=== PATIENT | female | born 1985 | race African-American/Black ===

== ENCOUNTER 2016-03-22 14:58 | Inpatient (IN) | payer OTHER ==
--- NOTE | 2016-03-22 15:52 | PDOC ---
History of Present Illness - General Chief Complaint: Sickle Cell Crisis Stated Complaint: WEAKNESS, JOINT PAIN Time Seen by Provider: 03/22/16 15:47 History Source: Patient - History of Present Illness Timing/Duration: other Associated Symptoms: reports: chest pain. denies: cough, fever/chills, headaches, nausea/vomiting, shortness of breath, weakness Past History - Past Medical History Allergies/Adverse Reactions: Allergies Allergy/AdvReac Type Severity Reaction Status Date / Time No Known Allergies Allergy Verified 03/22/16 15:14 Home Medications: Ambulatory Orders Folic Acid - 1 mg PO DAILY #30 tablet 08/26/13 Anemia: Yes (SICKLE CELL) - Surgical History Cholecystectomy: Yes (JUNE 2013) Orthopedic Surgery: Yes (left knee surgery 11yrears ago) - Immunization History Immunization Up to Date: Yes - Psycho/Social/Smoking Cessation Hx Anxiety: No Suicidal Ideation: No Smoking History: Never smoked Have you smoked in the past 12 months: No Number of Cigarettes Smoked Daily: 0 Information on smoking cessation initiated: No Hx Alcohol Use: No Drug/Substance Use Hx: No Substance Use Type: None Hx Substance Use Treatment: No Review of Systems - Review of Systems Constitutional: No: Chills, Fever Respiratory: No: Cough, Shortness of Breath Cardiac (ROS): Yes: Chest Pain ABD/GI: No: Constipated, Diarrhea, Nausea, Vomiting, Abdominal cramping : No: Dysuria Musculoskeletal: Yes: Joint Pain. No: Back Pain, Joint Swelling, Neck Pain Neurological: No: Headache, Dizziness *Physical Exam - Vital Signs Last Vital Signs Temp Pulse Resp BP Pulse Ox 99.0 F 108 H 20 123/72 95 03/22/16 15:14 03/22/16 15:14 03/22/16 15:14 03/22/16 15:14 03/22/16 15:14 - Physical Exam General Appearance: Yes: Appropriately Dressed. No: Apparent Distress HEENT: positive: Normal Voice, Scleral Icterus (R), Scleral Icterus (L) Neck: positive: Supple Respiratory/Chest: positive: Lungs Clear, Normal Breath Sounds. negative: Respiratory Distress Cardiovascular: positive: S1, S2, Tachycardia Gastrointestinal/Abdominal: positive: Soft. negative: Tender Extremity: positive: Normal Inspection Integumentary: positive: Dry, Warm Neurologic: positive: Fully Oriented, Alert, Normal Mood/Affect ED Treatment Course - LABORATORY CBC & Chemistry Diagram: 03/22/16 16:09 03/22/16 16:09 - RADIOLOGY Radiology Studies Ordered: Category Date Time Status CHEST X-RAY PORTABLE* [RAD] Stat Radiology 03/22/16 15:48 Ordered Medical Decision Making - Medical Decision Making 03/22/16 16:16 30-year-old female, history of sickle cell anemia, status post multiple transfusions, possible acute chest per pt, "enlarged liver", chronic scleral icterus, currently on folic acid and motrin, presenting with usual pain crisis. Patient states 3 days ago developed bilateral lower extremity pain that resolved at some point and reoccurred today with radiation to hips now. Also complaining of bilateral shoulder pain and chest pain. No sob, palpitations, cough, fever, chills, abdominal pain, change in bowel movements or dysuria. States Motrin not relieving pain. See exam Sicle cell crises -pain control -labs/ekg/cxr -dispo pending 03/22/16 16:25 03/22/16 17:43 Hgb 5.1, will transfuse and admit 03/22/16 17:49 03/22/16 18:04 Case d/w hospitalist and pt admitted 03/22/16 18:08 03/22/16 18:34 WBC elevated. Appears to have been elevated in the past. Will r/o infxn. UA neg for infection. CXR pending *DC/Admit/Observation/Transfer Diagnosis at time of Disposition: Sickle cell anemia Qualifiers: Sickle-cell associated disorders: with unspecified crisis Qualified Code(s): D57.00 - Hb-SS disease with crisis, unspecified - Discharge Dispostion Condition at time of disposition: Fair Admit: Yes
[2016-03-22] MEDS ORDERED: DEXTROSE 5%-0.45% SALINE 1,000 ML IV SCH (16:00)
[2016-03-22] MEDS ORDERED: HYDROmorphone HCL CARPU-JECT 2 MG/1 ML DISP.SYRIN IVPB ONE (16:14)
[2016-03-22] MEDS ORDERED: HYDROmorphone HCL CARPU-JECT 2 MG/1 ML DISP.SYRIN ONE (16:14)
[2016-03-22 16:37] LABS: URINE APPEARANCE CLEAR; URINE BILIRUBIN NEGATIVE (NEGATIVE); URINE COLOR DKYELLOW; URINE GLUCOSE (UA) NEGATIVE (NEGATIVE); URINE KETONE NEGATIVE (NEGATIVE); URINE LEUK ESTERASE NEGATIVE (NEGATIVE); URINE NITRITE NEGATIVE (NEGATIVE); URINE UROBILINOGEN 2.0 E.U/dl E.U./dl (0.2-1.0)
[2016-03-22 16:52] LABS: URINE BLOOD 2+ (NEGATIVE); URINE PROTEIN 2+ (NEGATIVE)
[2016-03-22 16:55] LABS: MCHC 32.6 g/dl (32.0-36.0); MEAN CELL VOLUME 104.2 fl (80-96); MEAN PLT VOLUME 10.6 fl (7.5-11.1); PLATELET COUNT 289 K/MM3 (134-434); RDW 27.3 % (11.6-15.6)
[2016-03-22 17:02] LABS: URINE MUCUS RARE; URINE RBC 15 /hpf (0-3); URINE WBC 2 /hpf (3-5)
[2016-03-22 17:15] LABS: ALBUMIN 3.6 g/dl (3.4-5.0); ALK PHOS 188 U/L (45-117); ANION GAP 9 (8-16); BILIRUBIN,TOTAL 5.2 mg/dL (0.2-1.0); CALCIUM 8.1 mg/dL (8.5-10.1); CO2 22 mmol/L (21-32); CREATININE 0.7 mg/dL (0.55-1.02); GLUCOSE,RANDOM 82 mg/dL (74-106); SGPT/ALT 74 U/L (12-78); TOT PROT 7.7 g/dl (6.4-8.2)
[2016-03-22 17:18] LABS: TROPONIN I < 0.02 ng/ml (0.00-0.05)
[2016-03-22 17:28] LABS: SGOT/AST 143 U/L (15-37)
[2016-03-22 18:11] LABS: PLATELET ESTIMATE ADEQUATE (NORMAL); POIKILOCYTOSIS 2+; POLYCHROMASIA 2+
[2016-03-22 18:12] LABS: ANISOCYTOSIS 3+; TARGET CELLS 1+
[2016-03-22 18:15] LABS: HOWELL-JOLLY BODIES SEEN
--- NOTE | 2016-03-22 18:18 | HP ---
CHIEF COMPLAINT: Patient states that apx 3 days ago, she developed bilateral lower ext pain that radiates to the hips. She is also complaining of bilateral shoulder pain and chest pain. She denies fever/chills/recent sick contacts. PCP: HISTORY OF PRESENT ILLNESS: Patient is a 30 year old female with a past medical history of sickle cell crisis, anemia. She is s/p multiple blood transfusions, chronic scleral icterus. She presents to the ED today with generalized pain and weakness. Patient states that apx 3 days ago, she developed bilateral lower ext pain that radiates to the hips. She is also complaining of bilateral shoulder pain and chest tightness which she believes is secondary to sickle cell crisis, last one 12/2015. She describes the chest pain as intermittent, sharp when she takes in a deep breath but does not radiate. Her menstrual cycle started on Friday and she reports it as being a normal period. Denies any clots or heavy bleeding. She denies shortness of breath, palpitations, cough, fever, chills, abdominal pain or dysuria. She states Motrin is not managing her pain. ER course was notable for: (1) hmg/hct 5.7/17.6 (2) Retic count 23.45 (3) Chest pain (4) WBC 41 PAST MEDICAL HISTORY: sickle cell crisis, anemia, multiple blood transfusions PAST SURGICAL HISTORY: Social History: Smoking: denies Alcohol: denies Drugs: denies Family History: Recent travel: Denies Family History: Mother has sickle cell trait, Sister has diabetes mellitus Social History: Has one child Allergies No Known Allergies Allergy (Verified 03/22/16 15:14) HOME MEDICATIONS: Medication Instructions Recorded Folic Acid - 1 mg PO DAILY #30 tablet 08/26/13 REVIEW OF SYSTEMS CONSTITUTIONAL: Absent: fever, chills, diaphoresis, generalized weakness, malaise, loss of appetite, weight change HEENT: Absent: rhinorrhea, nasal congestion, throat pain, throat swelling, difficulty swallowing, mouth swelling, ear pain, eye pain, visual changes CARDIOVASCULAR: chest pain Absent: syncope, palpitations, irregular heart rate, lightheadedness, peripheral edema RESPIRATORY: Absent: cough, shortness of breath, dyspnea with exertion, orthopnea, wheezing, stridor, hemoptysis GASTROINTESTINAL: denies abdominal pain, abdominal distension + bowel sounds Absent: nausea, vomiting, diarrhea, constipation, melena, hematochezia GENITOURINARY: Absent: dysuria, frequency, urgency, hesitancy, hematuria, flank pain, genital pain MUSCULOSKELETAL: back pain, leg pain Absent: myalgia, arthralgia, joint swelling, neck pain SKIN: Absent: rash, itching, pallor HEMATOLOGIC/IMMUNOLOGIC: Absent: easy bleeding, easy bruising, lymphadenopathy, frequent infections ENDOCRINE: Absent: unexplained weight gain, unexplained weight loss, heat intolerance, cold intolerance NEUROLOGIC: Absent: headache, focal weakness or paresthesias, dizziness, unsteady gait, seizure, mental status changes, bladder or bowel incontinence PSYCHIATRIC: Absent: anxiety, depression, suicidal or homicidal ideation, hallucinations. PHYSICAL EXAMINATION Vital Signs - 24 hr 03/22/16 15:14 Temperature 99.0 F Pulse Rate 108 H Respiratory 20 Rate Blood Pressure 123/72 O2 Sat by Pulse 95 Oximetry (%) GENERAL: Awake, alert, and fully oriented, in no acute distress. HEAD: Normal with no signs of trauma. EYES: Pupils equal, round and reactive to light, extraocular movements intact EARS, NOSE, THROAT: Ears normal, nares patent, oropharynx clear without exudates. Moist mucous membranes. NECK: Normal range of motion, supple without lymphadenopathy, JVD, or masses. LUNGS: Breath sounds equal, clear to auscultation bilaterally. No wheezes, and no crackles. No accessory muscle use. HEART: Regular rate and rhythm, normal S1 and S2 without murmur, rub or gallop. ABDOMEN: Soft, nontender, not distended, normoactive bowel sounds, no guarding, no rebound, no masses. MUSCULOSKELETAL: Normal range of motion at all joints. No bony deformities or tenderness. No CVA tenderness. UPPER EXTREMITIES: 2+ pulses, warm, well-perfused. No cyanosis. No clubbing. Cap refill <2 seconds. No peripheral edema. LOWER EXTREMITIES: 2+ pulses, warm, well-perfused. No calf tenderness. No peripheral edema. NEUROLOGICAL: Normal speech. Normal gait. PSYCHIATRIC: Cooperative. Good eye contact. Appropriate mood and affect. SKIN: Warm, dry, normal turgor, no rashes or lesions noted. Laboratory Results - last 24 hr 03/22/16 03/22/16 03/22/16 15:48 16:09 16:09 RBC 1.69 L D Hgb 5.7 L* D Hct 17.6 L D MCV 104.2 H MCHC 32.6 RDW 27.3 H Plt Count 289 D MPV 10.6 Neutrophils % Y Lymphocytes % Y Retic Count 23.45 H* D Sodium 139 Potassium 5.0 Chloride 108 H Carbon Dioxide 22 Anion Gap 9 BUN 10 D Creatinine 0.7 D Creat Clearance w eGFR > 60 Random Glucose 82 Calcium 8.1 L Total Bilirubin 5.2 H AST 143 H ALT 74 Alkaline Phosphatase 188 H D Creatine Kinase Troponin I Total Protein 7.7 Albumin 3.6 Serum , Qual Urine Color Urine Appearance Urine pH Ur Specific [place] Urine Protein Urine Glucose (UA) Urine Ketones Urine Blood Urine Nitrite Urine Bilirubin Urine Urobilinogen Ur Leukocyte Esterase Urine RBC Urine WBC Ur Epithelial Cells Urine Mucus Blood Type Antibody Screen Crossmatch 03/22/16 03/22/16 03/22/16 16:09 16:09 16:18 RBC Hgb Hct MCV MCHC RDW Plt Count MPV Neutrophils % Lymphocytes % Retic Count Sodium Potassium Chloride Carbon Dioxide Anion Gap BUN Creatinine Creat Clearance w eGFR Random Glucose Calcium Total Bilirubin AST ALT Alkaline Phosphatase Creatine Kinase 159 D Troponin I < 0.02 Total Protein Albumin Serum , Qual Negative Urine Color Dkyellow Urine Appearance Clear Urine pH 5.0 Ur Specific [place] 1.011 Urine Protein 2+ H Urine Glucose (UA) Negative Urine Ketones Negative Urine Blood 2+ H Urine Nitrite Negative Urine Bilirubin Negative Urine Urobilinogen 2.0 e.u/dl H Ur Leukocyte Esterase Negative Urine RBC 15 Urine WBC 2 Ur Epithelial Cells Rare Urine Mucus Rare Blood Type O POSITIVE Antibody Screen Negative Crossmatch See Detail ASSESSMENT/PLAN: Patient is a 30 year old female with a past medical history of sickle cell crisis, anemia. She is s/p multiple blood transfusions, chronic scleral icterus. She presents to the ED today with generalized pain and weakness. Patient states that apx 3 days ago, she developed bilateral lower ext pain that radiates to the hips. She is also complaining of bilateral shoulder pain and chest tightness which she believes is secondary to sickle cell crisis, last sickle cell crisis on 12/2015. She describes the chest pain as intermittent, sharp when she takes in a deep breath but does not radiate. She denies shortness of breath, palpitations, cough, fever, chills, abdominal pain or dysuria. She states Motrin is not managing her pain. Her menstrual cycle started on Friday and she reports it as being a normal period. Denies any clots or heavy vaginal bleeding. She states she has been non compliant with the Hydroxurea secondary to insurance issues. Hematology/Oncology: Acute sickle cell crisis - Hmg/Hct 5.7/17.6 - getting 2 units of prbc, Chest Xray: pending Pain Control with Morphine 2mg iv push q4, Benadryl prn NS at 125cc/hr, Hydroxyurea BID and folic acid Supplemental oxygen prn Re-check CBC, Retic, LDH Transfuse as needed VQ scan ordered to rule out PE Cardiology: Chest Pain - acute Troponins x 1 negative, trend troponins ID: Leukocytosis likely reactive to crisis WBC 41, patient is afebrile, vitals stable, Blood cultures ordered, urine cultures ordered Non toxic appearing, denies recent sick contacts or travel WBC appears to have been chronically elevated in the past. ID consulted, Trend CBC, Monitor off antibiotics, monitor vitals GI: Transaminitis Trend LFTs F.E.N. NS at 125cc/hr Regular diet BMP in a.m. Prophylaxis: Moderate risk: SCDs for DVT, ambulation Disposition: Requires inpatient hospitalization, patient receiving 2 units of prbc, heme/onc consulted. Visit type - Emergency Visit Emergency Visit: Yes ED Registration Date: 03/22/16 Care time: The patient presented to the Emergency Department on the above date and was hospitalized for further evaluation of their emergent condition. - New Patient This patient is new to me today: Yes Date on this admission: 04/02/16 - Critical Care Critical Care patient: No
[2016-03-22] MEDS ORDERED: HYDROmorphone HCL CARPU-JECT 1 MG/1 ML DISP.SYRIN IVPUSH PRN (18:20)
[2016-03-22] MEDS ORDERED: ONDANSETRON 4 MG/2 ML VIAL IVPUSH PRN (18:45)
[2016-03-22] MEDS ORDERED: morphine CARPU-JECT 2 MG/1 ML DISP.SYRIN IVPUSH PRN (18:45)
[2016-03-22] MEDS: SODIUM CHLORIDE 1,000 ML IV SCH (20:44)
--- NOTE | 2016-03-22 21:59 | CONSULT ---
Consult Consult Specialty:: Hematology Referred by:: Naye Castillo Reason for Consultation:: Sickle crisis - History of Present Illness Chief Complaint: pain X3 days History of Present Illness: 30 y/o F w Sickle Cell Anemia , stopped hydrea 1 year ago , suboptimal hematological f/u over past year, now w 3 day hx of progressive bone pain , knees up to hips , shoulders/chest ; had chills ,low grade fever but no dysuria , cough,or phlegm .The H/H was 5.7 /17.6 MCV 104 [id number] plates 289K + sickle cells Retic 23.Pt started on hydration and morphine ; CXR neg ; UA neg ; LFT's sl elevated .Pt feeling slightly better , O2 sat 95% - History Source History Provided By: Patient Limitations to Obtaining History: No Limitations - 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: Alzheimer's, CVA, Dementia, Migraine, Multiple Sclerosis, Peripheral Neuropathy, Parkinson's, Seizure, Syncope, TIA, Vertigo, Other Cardio/Vascular: No: AFIB, Aneurysm, Aortic Insufficiency, Aortic Stenosis, CAD , CHF, Deep Vein Thrombosis, HTN, Hyperlipdemia, MA, Mitral Insufficiency, Mitral Stenosis, Murmur, Pulmonary Hypertension, Other Pulmonary: No: Asthma, Bronchitis, Cancer, COPD, O2 Dependent, Pneumonia, Previously Intubated, Pulmonary Embolus, Pulmonary Fibrosis, Sleep Apnea, Other Gastrointestinal: No: Ascites, Cancer, Constipation, Crohn's Disease, Diverticulitis, Diverticulosis, Esophageal Varices, Gastritis, GERD, GI Bleed, Hemorrhoids, Hiatal Hernia, Inflamatory Bowel Disease, Irritable Bowel Disease, Pancreatitis, Peptic Ulcer Disease, Ulcerative Colitis, Other Hepatobiliary: Yes: Cirrhosis. No: Cholecystitis, Choledocholithiasis, Hepatitis A, Hepatitis B, Hepatitis C, Other ...LMP: 12/21/15 Heme/Onc: Yes: Anemia, Sickle Cell Disease Musculoskeletal: Yes: Other ( knee infection) Rheumatology: No: Fibromyalgia, Gout, Lupus, Rheumatoid Arthritis, Sarcoidosis, Vasculitis, Other ENT: No: Allergic Rhinitis, Sinusitis, Other Endocrine: No: Mono's Disease, [place]'s Disease, Diabetes Insipidus, Diabetes Mellitus, Hyperparathyroidism, Hyperthyroidism, Hypothyroidism, Osteopenia, SIADH, Other Dermatology: No: Basal Cell, Cellulitis, Eczema, Melanoma, Psoriasis, Squamous Cell, Other Additional Medical History: history of multiple gallstones - Past Surgical History Past Surgical History: Yes: Cholecystectomy, - Alcohol/Substance Use Hx Alcohol Use: No - Smoking History Smoking history: Never smoked Have you smoked in the past 12 months: No Aproximately how many cigarettes per day: 0 - Social History History of Recent Travel: No Home Medications - Allergies Allergies/Adverse Reactions: Allergies Allergy/AdvReac Type Severity Reaction Status Date / Time No Known Allergies Allergy Verified 03/22/16 15:14 - Home Medications Home Medications: Ambulatory Orders Folic Acid - 1 mg PO DAILY #30 tablet 08/26/13 Family Disease History - Family Disease History Family Disease History: Diabetes: Sister, Other: Mother (scc trait) Review of Systems - Review of Systems Constitutional: reports: Chills, Fever, Weakness Eyes: reports: No Symptoms HENT: reports: No Symptoms Neck: reports: No Symptoms Cardiovascular: reports: No Symptoms Respiratory: reports: No Symptoms Gastrointestinal: reports: No Symptoms Genitourinary: reports: No Symptoms Breasts: reports: No Symptoms Reported Musculoskeletal: reports: Extremity Pain, Other (chest wall pain) Integumentary: reports: No Symptoms Neurological: reports: No Symptoms Endocrine: reports: No Symptoms Hematology/Lymphatic: reports: No Symptoms Psychiatric: reports: No Symptoms Physical Exam Vital Signs: Vital Signs Temperature 97.5 F L 03/22/16 18:40 Pulse Rate 18 L 03/22/16 19:25 Respiratory Rate 18 03/22/16 19:25 Blood Pressure 121/84 03/22/16 19:25 O2 Sat by Pulse Oximetry (%) 100 03/22/16 19:25 Constitutional: Yes: Well Nourished, No Distress, Calm Eyes: Yes: WNL, EOM Intact, Sclera Icterus HENT: Yes: WNL, Atraumatic, Normocephalic Neck: Yes: WNL, Supple, Trachea Midline Cardiovascular: Yes: WNL, Regular Rate and Rhythm, Murmur Respiratory: Yes: WNL, Regular Gastrointestinal: Yes: WNL, Normal Bowel Sounds, Soft. No: Abdomen, Obese, Ascites, Distention, Hematemesis, Hemorrhoids, Hepatomegaly, Hernia, Hyperactive Bowel Sounds, Hypoactive Bowel Sounds, Melena, Palpable Mass, Pulsatile Mass, Rectal Bleeding, Splenomegaly, Tenderness, Tenderness, Epigastrium, Tenderness, Rebound, Vomiting, Other Musculoskeletal: Yes: Joint Stiffness Extremities: Yes: WNL Edema: No Problem List - Problems (1) Sickle cell anemia Code(s): D57.1 - SICKLE-CELL DISEASE WITHOUT CRISIS Qualifiers: Sickle-cell associated disorders: with unspecified crisis Qualified Code(s): D57.00 - Hb-SS disease with crisis, unspecified; D57.0 - Hb-SS disease with crisis Assessment/Plan Sickle crisis ; requires Tx PC's , aim for Hgb 8 ; pain control and hydration . Would hold hydrea for now and advise pt to go back to [facility] upon D/ C ; no exchange Tx indicated yet unless crisis becomes prolonged or SOB/ chest syndrome develops
[2016-03-22] MEDS ORDERED: HYDROXYUREA 500 MG CAPSULE PO SCH (22:00)
[2016-03-23] MEDS: SODIUM CHLORIDE 1,000 ML IV SCH ×3 (02:55→18:46)
[2016-03-23 04:07] VITALS: BMI 22.4
[2016-03-23 10:12] LABS: MCH 32.6 pg (25.7-33.7); MCHC 34.3 g/dl (32.0-36.0); MEAN CELL VOLUME 95.1 fl (80-96); MEAN PLT VOLUME 9.8 fl (7.5-11.1); PLATELET COUNT 279 K/MM3 (134-434); RDW 23.6 % (11.6-15.6)
[2016-03-23 10:25] LABS: INR 1.51 (0.82-1.09); PROTHROMBIN TIME (PATIENT) 16.8 SEC (9.98-11.88)
[2016-03-23 10:27] LABS: ACTIVATED PTT 36.4 SECONDS (26.9-34.4)
[2016-03-23] MEDS: FOLIC ACID 1 MG TABLET (FP) PO SCH (10:29)
[2016-03-23] MEDS: PANTOPRAZOLE SODIUM 100 ML IVPB SCH (10:29)
[2016-03-23 11:15] LABS: ALBUMIN 3.3 g/dl (3.4-5.0); ALK PHOS 174 U/L (45-117); ANION GAP 9 (8-16); BILIRUBIN,TOTAL 3.8 mg/dL (0.2-1.0); CALCIUM 7.8 mg/dL (8.5-10.1); CO2 21 mmol/L (21-32); CREATININE 0.5 mg/dL (0.55-1.02); GLUCOSE,RANDOM 127 mg/dL (74-106); MAGNESIUM 1.9 mg/dL (1.8-2.4); PHOSPHOROUS 3.5 mg/dL (2.5-4.9); SGOT/AST 114 U/L (15-37); SGPT/ALT 64 U/L (12-78); TOT PROT 6.9 g/dl (6.4-8.2); TROPONIN I < 0.02 ng/ml (0.00-0.05)
[2016-03-23 11:39] LABS: PLATELET COMMENT2 NO CLOTTING DETECTED; PLATELET ESTIMATE ADEQUATE (NORMAL); SMUDGE CELLS FEW
[2016-03-23 11:40] LABS: ANISOCYTOSIS 3+; HYPOCHROMIA 2+; MICROCYTOSIS 1+; PLATELET COMMENT3 FEW GIANT PLTS; POIKILOCYTOSIS 3+; POLYCHROMASIA 3+; TARGET CELLS 1+
--- NOTE | 2016-03-23 13:57 | EKG ---
Test Reason : Blood Pressure : / mmHG Vent. Rate : 087 BPM Atrial Rate : 087 BPM P-R Int : 134 ms QRS Dur : 086 ms QT Int : 364 ms P-R-T Axes : 054 042 044 degrees QTc Int : 438 ms NORMAL SINUS RHYTHM NONSPECIFIC T WAVE ABNORMALITY ABNORMAL ECG WHEN COMPARED WITH ECG OF 29-SEP-2015 19:58, NO SIGNIFICANT CHANGE WAS FOUND Confirmed by MD JACK, ELADIO ([id number]) on 03/23/2016 1:57:01 PM Referred By: BRITT ARIASILTON Overread By: ELADIO SANTIAGO MD
--- NOTE | 2016-03-23 15:21 | CONSULT ---
Consult Consult Specialty:: infectious diseases Reason for Consultation:: sickle cell,increased wbc - History of Present Illness Chief Complaint: sickle cell History of Present Illness: 10 year old female with a past medical history of sickle cell crisis, anemia. She is s/p multiple blood transfusions, chronic scleral icterus. to the ED Patient states that apx 3 days ago, she developed bilateral lower ext pain that radiates to the hips. She is also complaining of bilateral shoulder pain and chest tightness which she believes is secondary to sickle cell crisis, last one 12/2015. She describes the chest pain as intermittent, sharp when she takes in a deep breath but does not radiate. 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, CVA, Dementia, Migraine, Multiple Sclerosis, Peripheral Neuropathy, Parkinson's, Seizure, Syncope, TIA, Vertigo, Other Cardio/Vascular: No: AFIB, Aneurysm, Aortic Insufficiency, Aortic Stenosis, CAD , CHF, Deep Vein Thrombosis, HTN, Hyperlipdemia, MS, Mitral Insufficiency, Mitral Stenosis, Murmur, Pulmonary Hypertension, Other Pulmonary: No: Asthma, Bronchitis, Cancer, COPD, O2 Dependent, Pneumonia, Previously Intubated, Pulmonary Embolus, Pulmonary Fibrosis, Sleep Apnea, Other Gastrointestinal: No: Ascites, Cancer, Constipation, Crohn's Disease, Diverticulitis, Diverticulosis, Esophageal Varices, Gastritis, GERD, GI Bleed, Hemorrhoids, Hiatal Hernia, Inflamatory Bowel Disease, Irritable Bowel Disease, Pancreatitis, Peptic Ulcer Disease, Ulcerative Colitis, Other Hepatobiliary: Yes: Cirrhosis. No: Cholecystitis, Choledocholithiasis, Hepatitis A, Hepatitis B, Hepatitis C, Other ...LMP: 12/21/15 ...: No Musculoskeletal: Yes: Other ( knee infection) Rheumatology: No: Fibromyalgia, Gout, Lupus, Rheumatoid Arthritis, Sarcoidosis, Vasculitis, Other ENT: No: Allergic Rhinitis, Sinusitis, Other Endocrine: No: [place]'s Disease, [place]'s Disease, Diabetes Insipidus, Diabetes Mellitus, Hyperparathyroidism, Hyperthyroidism, Hypothyroidism, Osteopenia, SIADH, Other Dermatology: No: Basal Cell, Cellulitis, Eczema, Melanoma, Psoriasis, Squamous Cell, Other Additional Medical History: history of multiple gallstones - Past Surgical History Past Surgical History: Yes: Cholecystectomy, - Alcohol/Substance Use Hx Alcohol Use: No - Smoking History Smoking history: Never smoked Have you smoked in the past 12 months: No Aproximately how many cigarettes per day: 0 - Social History History of Recent Travel: No Home Medications - Allergies Allergies/Adverse Reactions: Allergies Allergy/AdvReac Type Severity Reaction Status Date / Time No Known Allergies Allergy Verified 03/22/16 15:14 - Home Medications Home Medications: Ambulatory Orders Folic Acid - 1 mg PO DAILY #30 tablet 08/26/13 Family Disease History - Family Disease History Family Disease History: Diabetes: Sister, Other: Mother (scc trait) Review of Systems - Review of Systems Constitutional: reports: No Symptoms Eyes: reports: No Symptoms HENT: reports: No Symptoms Neck: reports: No Symptoms Cardiovascular: reports: No Symptoms Respiratory: reports: No Symptoms Gastrointestinal: reports: No Symptoms Genitourinary: reports: No Symptoms Breasts: reports: No Symptoms Reported Musculoskeletal: reports: No Symptoms Integumentary: reports: No Symptoms Neurological: reports: No Symptoms Endocrine: reports: No Symptoms Hematology/Lymphatic: reports: No Symptoms Psychiatric: reports: No Symptoms Physical Exam Vital Signs: Vital Signs Temperature 99.6 F 03/23/16 15:07 Pulse Rate 86 03/23/16 15:07 Respiratory Rate 18 03/23/16 15:07 Blood Pressure 118/61 03/23/16 15:07 O2 Sat by Pulse Oximetry (%) 99 03/22/16 22:10 Constitutional: Yes: No Distress, Calm Eyes: Yes: Conjunctiva Clear HENT: Yes: Atraumatic Cardiovascular: Yes: Regular Rate and Rhythm Respiratory: Yes: Regular, CTA Bilaterally Gastrointestinal: Yes: Normal Bowel Sounds, Soft, Abdomen, Obese, Distention Musculoskeletal: Yes: WNL Extremities: Yes: WNL Neurological: Yes: Alert, Oriented Psychiatric: Yes: Alert, Oriented Labs: CBC, BMP 03/23/16 09:50 03/23/16 09:50 Imaging - Results Chest X-ray: Report Reviewed, Image Reviewed Assessment/Plan - Problems (1) Sickle cell anemia Code(s): D57.1 - SICKLE-CELL DISEASE WITHOUT CRISIS Qualifiers: Sickle-cell associated disorders: with unspecified crisis Qualified Code(s): D57.00 - Hb-SS disease with crisis, unspecified; D57.0 leukocytosis plan no abx at this moment close watch on the patient
--- NOTE | 2016-03-23 18:06 | PN ---
Physical Exam: SUBJECTIVE: Patient seen and examined. She reports feeling better. Denies any chest pain or shortness of breath. Pain controlled on morphine. OBJECTIVE: Vital Signs Period Temp Pulse Resp BP Sys/Smith Pulse Ox Last 24 Hr 97.5 F-99.6 F 18-111 16-18 114-136/58-84 95-100 GENERAL: Awake, alert, and fully oriented, in no acute distress. HEAD: Normal with no signs of trauma. EYES: Pupils equal, round and reactive to light, extraocular movements intact EARS, NOSE, THROAT: Ears normal, nares patent, oropharynx clear without exudates. Moist mucous membranes. NECK: Normal range of motion, supple without lymphadenopathy, JVD, or masses. LUNGS: Breath sounds equal, clear to auscultation bilaterally. No wheezes, and no crackles. No accessory muscle use. HEART: Regular rate and rhythm, normal S1 and S2 without murmur, rub or gallop. ABDOMEN: Soft, nontender, distended, normoactive bowel sounds, no guarding, no rebound, no masses. MUSCULOSKELETAL: Normal range of motion at all joints. No bony deformities or tenderness. No CVA tenderness. UPPER EXTREMITIES: 2+ pulses, warm, well-perfused. No cyanosis. No clubbing. Cap refill <2 seconds. No peripheral edema. LOWER EXTREMITIES: 2+ pulses, warm, well-perfused. No calf tenderness. No peripheral edema. NEUROLOGICAL: Normal speech. Normal gait. PSYCHIATRIC: Cooperative. Good eye contact. Appropriate mood and affect. SKIN: Warm, dry, normal turgor, no rashes or lesions noted. Laboratory Results - last 24 hr 03/23/16 03/23/16 03/23/16 00:00 09:50 09:50 WBC 28.0 H D Corrected WBC (auto) 23.53 RBC 2.47 L D Hgb 8.1 L D Hct 23.5 L D MCV 95.1 MCHC 34.3 RDW 23.6 H D Plt Count 279 MPV 9.8 Neutrophils % 47.0 D Lymphocytes % 40.0 D Monocytes % 6.0 Eosinophils % 2.0 D Band Neutrophils 5.0 D Nucleated RBCs 19 H* Smudge Cells Few Platelet Estimate Adequate Platelet Comment No clotting detected Polychromasia 3+ Hypochromic-Microcytic 2+ Poikilocytosis 3+ Basophilic Stippling 1+ Anisocytosis 3+ Microcytosis 1+ Macrocytosis 2+ Sickle Cells 2+ Target Cells 1+ INR 1.51 H PTT (Actin FS) 36.4 H Sodium Potassium Chloride Carbon Dioxide Anion Gap BUN Creatinine Creat Clearance w eGFR Random Glucose Calcium Phosphorus Magnesium Total Bilirubin AST ALT Alkaline Phosphatase Creatine Kinase Troponin I < 0.02 Total Protein Albumin 03/23/16 09:50 WBC Corrected WBC (auto) RBC Hgb Hct MCV MCHC RDW Plt Count MPV Neutrophils % Lymphocytes % Monocytes % Eosinophils % Band Neutrophils Nucleated RBCs Smudge Cells Platelet Estimate Platelet Comment Polychromasia Hypochromic-Microcytic Poikilocytosis Basophilic Stippling Anisocytosis Microcytosis Macrocytosis Sickle Cells Target Cells INR PTT (Actin FS) Sodium 140 Potassium 4.3 Chloride 110 H Carbon Dioxide 21 Anion Gap 9 BUN 7 D Creatinine 0.5 L D Creat Clearance w eGFR > 60 Random Glucose 127 H D Calcium 7.8 L Phosphorus 3.5 Magnesium 1.9 Total Bilirubin 3.8 H D AST 114 H D ALT 64 Alkaline Phosphatase 174 H Creatine Kinase 31 Troponin I < 0.02 Total Protein 6.9 Albumin 3.3 L Active Medications Generic Name Dose Route Start Last Admin Trade Name Freq PRN Reason Stop Dose Admin Diphenhydramine HCl 12.5 mg 03/22/16 18:45 Benadryl Injection - IVPUSH Q4H PRN FOR ITCHING Folic Acid 1 mg 03/23/16 10:00 03/23/16 10:29 Folic Acid - PO 1 mg DAILY ROM Administration Hydroxyurea 500 mg 03/22/16 22:00 03/22/16 22:21 Hydrea - PO 500 mg BID ROM Administration Sodium Chloride 1,000 mls @ 125 mls/hr 03/22/16 18:30 03/23/16 10:28 Normal Saline - IV 125 mls/hr ASDIR ROM Administration Pantoprazole Sodium 100 mls @ 200 mls/hr 03/23/16 10:00 03/23/16 10:29 Protonix 40mg Ivpb (Pre-Docked) IVPB 200 mls/hr DAILY ROM Administration Morphine Sulfate 2 mg 03/22/16 18:45 03/22/16 22:18 Morphine Injection - IVPUSH 2 mg Q4H PRN Administration PAIN Ondansetron HCl 4 mg 03/22/16 18:45 Zofran Injection IVPUSH Q6H PRN NAUSEA AND/OR VOMITING ASSESSMENT/PLAN: Patient is a 30 year old female with a past medical history of sickle cell crisis, anemia. She is s/p multiple blood transfusions, chronic scleral icterus. She presents to the ED today with generalized pain and weakness. Patient states that apx 3 days ago, she developed bilateral lower ext pain that radiates to the hips. She is also complaining of bilateral shoulder pain and chest tightness which she believes is secondary to sickle cell crisis, last sickle cell crisis on 12/2015. She describes the chest pain as intermittent, sharp when she takes in a deep breath but does not radiate. She denies shortness of breath, palpitations, cough, fever, chills, abdominal pain or dysuria. Her menstrual cycle started on Friday and she reports it as being a normal period, denies clots or heavy vaginal bleeding. She states she has been non compliant with the Hydroxurea secondary to insurance issues. Hematology/Oncology: Acute sickle cell crisis - Hmg/Hct 5.7/17.6 on admission, s/p 2 units of prbc, h/h 8.1/23.5, repeat CBC in a.m. Assessment/Plan: Pain Control with Morphine 2mg iv push q4, Benadryl prn NS at 125cc/hr, Hydroxyurea on hold as per [employer] Supplemental oxygen prn, 2 lites, oxygen in 95% Re-check CBC, Retic, LDH in a.m. Transfuse as needed, VQ scan ordered to rule out PE Cardiology: Chest Pain - acute Troponins x 3 negative ID: Leukocytosis likely reactive to crisis - improving Assessment/Plan: WBC 41 on admission, now 28, patient is afebrile, vitals stable, Blood cultures/urine cultures pending Non toxic appearing, denies recent sick contacts or travel WBC appears to have been chronically elevated in the past. ID consulted, Trend CBC, Monitor off antibiotics, monitor vitals GI: Transaminitis - chronic Assessment/Plan: AST/ALT trending down Monitor labs F.E.N. NS at 125cc/hr Regular diet BMP in a.m. Prophylaxis: Moderate risk: SCDs for DVT, ambulation Disposition: Requires inpatient hospitalization. Full Code. Visit type - Emergency Visit Emergency Visit: Yes ED Registration Date: 03/22/16 Care time: The patient presented to the Emergency Department on the above date and was hospitalized for further evaluation of their emergent condition. - New Patient This patient is new to me today: Yes Date on this admission: 03/24/16 - Critical Care Critical Care patient: No - Discharge Referral Referred to [facility] Med P.C.: No
[2016-03-24 08:09] LABS: MCHC 34.4 g/dl (32.0-36.0); MEAN CELL VOLUME 95.9 fl (80-96); MEAN PLT VOLUME 10.1 fl (7.5-11.1); PLATELET COUNT 229 K/MM3 (134-434); RDW 24.2 % (11.6-15.6)
[2016-03-24 08:33] LABS: ALBUMIN 3.2 g/dl (3.4-5.0); ANION GAP 8 (8-16); CALCIUM 7.8 mg/dL (8.5-10.1); CO2 21 mmol/L (21-32); GLUCOSE,RANDOM 77 mg/dL (74-106)
[2016-03-24 08:37] LABS: ALK PHOS 165 U/L (45-117); BILIRUBIN,TOTAL 4.5 mg/dL (0.2-1.0); CREATININE 0.5 mg/dL (0.55-1.02); SGOT/AST 104 U/L (15-37); SGPT/ALT 59 U/L (12-78); TOT PROT 6.9 g/dl (6.4-8.2)
[2016-03-24] MEDS: SODIUM CHLORIDE 1,000 ML IV SCH (09:03)
[2016-03-24] MEDS: PANTOPRAZOLE SODIUM 100 ML IVPB SCH (09:03)
[2016-03-24] MEDS: FOLIC ACID 1 MG TABLET (FP) PO SCH (09:03)
[2016-03-24 09:13] LABS: WHITE BLOOD COUNT 25.3 K/mm3 (4.0-10.0)
[2016-03-24 09:16] LABS: POLYCHROMASIA 1+
[2016-03-24 09:17] LABS: ANISOCYTOSIS 3+; HYPOCHROMIA 1+; MICROCYTOSIS 1+
[2016-03-24 09:19] LABS: PLATELET ESTIMATE ADEQUATE (NORMAL)
--- NOTE | 2016-03-24 12:18 | DS ---
Physical Exam: SUBJECTIVE: Patient seen and examined. She is eager to go home. States she feels well. OBJECTIVE: GENERAL: Awake, alert, and fully oriented, in no acute distress. HEAD: Normal with no signs of trauma. EYES: Pupils equal, round and reactive to light, extraocular movements intact EARS, NOSE, THROAT: Ears normal, nares patent, oropharynx clear without exudates. Moist mucous membranes. NECK: Normal range of motion, supple without lymphadenopathy, JVD, or masses. LUNGS: Breath sounds equal, clear to auscultation bilaterally. No wheezes, and no crackles. No accessory muscle use. HEART: Regular rate and rhythm, normal S1 and S2 without murmur, rub or gallop. ABDOMEN: Soft, nontender, distended, normoactive bowel sounds, no guarding, no rebound, no masses. MUSCULOSKELETAL: Normal range of motion at all joints. No bony deformities or tenderness. No CVA tenderness. UPPER EXTREMITIES: 2+ pulses, warm, well-perfused. No cyanosis. No clubbing. Cap refill <2 seconds. No peripheral edema. LOWER EXTREMITIES: 2+ pulses, warm, well-perfused. No calf tenderness. No peripheral edema. NEUROLOGICAL: Normal speech. Normal gait. PSYCHIATRIC: Cooperative. Good eye contact. Appropriate mood and affect. SKIN: Warm, dry, normal turgor, no rashes or lesions noted. Vital Signs Period Temp Pulse Resp BP Sys/Smith Pulse Ox Last 24 Hr 98 F-99.8 F 82-95 18-20 114-133/61-78 98 PHYSICAL EXAM LABS Laboratory Results - last 24 hr 03/24/16 03/24/16 07:10 07:10 WBC 25.3 H Corrected WBC (auto) 22.59 RBC 2.38 L Hgb 7.9 L Hct 22.8 L MCV 95.9 MCHC 34.4 RDW 24.2 H Plt Count 229 MPV 10.1 Neutrophils % 62.0 D Lymphocytes % 29.0 D Monocytes % 5.0 Eosinophils % 3.0 Band Neutrophils 1.0 D Nucleated RBCs 12 H* Platelet Estimate Adequate Platelet Comment Few large plts Polychromasia 1+ Hypochromic-Microcytic 1+ Anisocytosis 3+ Microcytosis 1+ Macrocytosis 1+ Sickle Cells 2+ Retic Count 16.32 H* D Sodium 141 Potassium 4.6 Chloride 112 H Carbon Dioxide 21 Anion Gap 8 BUN 8 Creatinine 0.5 L Creat Clearance w eGFR > 60 Random Glucose 77 D Calcium 7.8 L Total Bilirubin 4.5 H AST 104 H ALT 59 Alkaline Phosphatase 165 H Total Protein 6.9 Albumin 3.2 L HOSPITAL COURSE: Date of Admission:03/22/16 Date of Discharge: 03/24/16 Admitting diagnosis: Sickle Cell Anemia Patient is a 30 year old female with a past medical history of sickle cell crisis s/p multiple transfusions who presented to the ED on 03/23/2016 with generalized pain (back pain, chest pain, leg pain) that she believes to be secondary to sickle cell crisis. She was admitted to med surg and started on IVF @ 125cc/hr, s/p 2 units of blood, pain control and nausea control. Hematology consulted. Since hospital course she has clinically improved. Reticulocyte count trending down. Urine culture negative. She has been afebrile. She did not require any further blood transfusions. Pt requesting to be discharged, I would like for her to stay one more day but she states she feels well and will follow up with her PCP in [facility] as well as a family practice physician assistant as she now has insurance. She is aware that it is important to follow up with her PCP, Heme and to continue to hydrate herself. I also advised her to seek a GI consult. She is aware that although her hmg/hct have improved, she is still anemic and needs repeat hmg/hct. She verbalized understanding. Hematology/Oncology: Acute sickle cell crisis - Hmg/Hct 5.7/17.6 on admission, s/p 2 units of prbc, h/h now 7.9/22.8 Will get repeat CBC, Retic, LDH as outpatient Cardiology: Chest Pain - acute Troponins x 3 negative No longer has chest pain, no longer short of breath She ambulates without difficulty, reports no dyspnea ID: Leukocytosis likely reactive to crisis - improving Assessment/Plan: WBC 41 on admission, now 25.3, patient is afebrile, vitals stable, Urine cultures negative Non toxic appearing, denies recent sick contacts or travel WBC appears to have been chronically elevated in the past. GI: Transaminitis - chronic Assessment/Plan: AST/ALT trending down Minutes to complete discharge: 45 Discharge Summary Reason For Visit: SICKLE CELL ANEMIA Current Active Problems Sickle cell anemia (Acute) Condition: Improved - Instructions Disposition: HOME - Home Medications Comprehensive Discharge Medication List: Ambulatory Orders Folic Acid - 1 mg PO DAILY #30 tablet 08/26/13 This patient is new to me today: No Emergency Visit: Yes ED Registration Date: 03/22/16 Care time: The patient presented to the Emergency Department on the above date and was hospitalized for further evaluation of their emergent condition. Critical Care patient: No - Discharge Referral Referred to [facility] Med P.C.: No
--- NOTE | 2016-03-24 14:19 | PN ---
Progress Note, Physician History of Present Illness: doing well no complaints - Current Medication List Current Medications: Active Medications Diphenhydramine HCl (Benadryl Injection -) 12.5 mg IVPUSH Q4H PRN PRN Reason: FOR ITCHING Folic Acid (Folic Acid -) 1 mg PO DAILY [facility] Last Admin: 03/24/16 09:03 Dose: 1 mg Hydroxyurea (Hydrea -) 500 mg PO BID [facility] Last Admin: 03/22/16 22:21 Dose: 500 mg Sodium Chloride (Normal Saline -) 1,000 mls @ 125 mls/hr IV ASDIR [facility] Last Admin: 03/24/16 09:03 Dose: 125 mls/hr Pantoprazole Sodium (Protonix 40mg Ivpb (Pre-Docked)) 100 mls @ 200 mls/hr IVPB DAILY [facility] Last Admin: 03/24/16 09:03 Dose: 200 mls/hr Morphine Sulfate (Morphine Injection -) 2 mg IVPUSH Q4H PRN PRN Reason: PAIN Last Admin: 03/22/16 22:18 Dose: 2 mg Ondansetron HCl (Zofran Injection) 4 mg IVPUSH Q6H PRN PRN Reason: NAUSEA AND/OR VOMITING - Objective Vital Signs: Vital Signs Temperature 98 F 03/24/16 09:00 Pulse Rate 82 03/24/16 09:00 Respiratory Rate 20 03/24/16 09:00 Blood Pressure 114/75 03/24/16 09:00 O2 Sat by Pulse Oximetry (%) 98 03/23/16 21:00 Constitutional: Yes: No Distress, Calm Cardiovascular: Yes: Regular Rate and Rhythm Respiratory: Yes: Regular, CTA Bilaterally Gastrointestinal: Yes: Normal Bowel Sounds, Distention Musculoskeletal: Yes: WNL Extremities: Yes: WNL Neurological: Yes: Alert, Oriented Labs: CBC, BMP 03/24/16 07:10 03/24/16 07:10 INR, PTT INR 1.51 (0.82-1.09) H 03/23/16 09:50 Assessment/Plan - Problems (1) Sickle cell anemia Code(s): D57.1 - SICKLE-CELL DISEASE WITHOUT CRISIS Qualifiers: Sickle-cell associated disorders: with unspecified crisis Qualified Code(s): D57.00 - Hb-SS disease with crisis, unspecified; D57.0 leukocytosis plan continue conservative treatment patient to go to [facility] for follow up
[2016-03-24 14:50] VITALS: BP 117/73; PULSE 85; TEMP 99.3
== END 2016-03-24 15:35 | disposition home or self-care (01) | DRG 812 ==
LOC: JER 14:58 → JERBED 18:09 → J6S 19:46
PROVIDERS: ADMIT Internal Medicine; ATTEND Nurse Practitioner Family
PROC: 30233N1 Transfusion of Nonautologous Red Blood Cells into Peripheral Vein, Percutaneous Approach (ICD-10-PCS; principal; 2016-03-22)
DX: D57.00 Hb-SS disease with crisis, unspecified (principal); D64.9 Anemia, unspecified; R74.0 Nonspecific elevation of levels of transaminase and lactic acid dehydrogenase [LDH]
CPT/HCPCS: 36415; 36430; 71010-TC; 80048; 80053; 81003; 81015; 82550; 82553; 83735; 84100; 84484; 84703; 85025; 85027; 85044; 85610; 85730; 86850; 86900; 86901; 86922; 87086; 93005; 93010; 99284-25; J8999; P9058

== ENCOUNTER 2018-09-04 20:47 | Emergency (ER) | payer OTHER ==
[2018-09-04 20:51] VITALS: BP 120/80; PULSE 102; TEMP 98.3; BMI 21.9
--- NOTE | 2018-09-04 20:52 | PDOC ---
Rapid Medical Evaluation Time Seen by Provider: 09/04/18 20:49 Medical Evaluation: Allergies Allergy/AdvReac Type Severity Reaction Status Date / Time No Known Allergies Allergy Verified 03/22/16 15:14 09/04/18 20:49 Patient complains of:vag itching and burning with bumps to area, want std w/u Patient on brief exam: vss Patient ordered for: gc/chylam, rpr, hiv Patient to proceed to the ED Discharge Disposition - Diagnosis Vaginal abrasion - Discharge Dispostion Disposition: HOME Condition at time of disposition: Stable - Referrals Referrals: Malik Shepherd MD [Staff Physician] - - Patient Instructions Additional Instructions: Please keep the area clean with soap and water and left open to air as much as possible return to the emergency room for worsening symptoms and follow-up with [facility] in 1-2 days for further evaluation and treatment options. - Post Discharge Activity
[2018-09-04 21:39] LABS: URINE APPEARANCE CLEAR; URINE BILIRUBIN NEGATIVE (NEGATIVE); URINE COLOR YELLOW; URINE GLUCOSE (UA) NEGATIVE (NEGATIVE); URINE KETONE NEGATIVE (NEGATIVE); URINE LEUK ESTERASE NEGATIVE (NEGATIVE); URINE NITRITE NEGATIVE (NEGATIVE); URINE PROTEIN NEGATIVE (NEGATIVE)
--- NOTE | 2018-09-04 22:29 | PDOC ---
History of Present Illness - General Chief Complaint: HIV Testing Stated Complaint: PERSONAL Time Seen by Provider: 09/04/18 20:49 - History of Present Illness Initial Comments: 09/04/18 22:26 32-year-old female with a past medical history significant for sickle cell trait presents for evaluation of vaginal irritation after shaving about a week ago. She has not had unprotected sex has no risk factors for HIV she did not use IV drugs, she practices safe sex. Past History - Past Medical History Allergies/Adverse Reactions: Allergies Allergy/AdvReac Type Severity Reaction Status Date / Time No Known Allergies Allergy Verified 09/04/18 20:51 Home Medications: Ambulatory Orders Folic Acid - 1 mg PO DAILY #30 tablet 08/26/13 Anemia: Yes (SICKLE CELL) COPD: No - Surgical History Cholecystectomy: Yes (JUNE 2013) Orthopedic Surgery: Yes (left knee surgery 11yrears ago) - Immunization History Immunization Up to Date: Yes - Suicide/Smoking/Psychosocial Hx Smoking History: Unknown if ever smoked Have you smoked in the past 12 months: No Number of Cigarettes Smoked Daily: 0 Hx Alcohol Use: No Drug/Substance Use Hx: No Substance Use Type: None Hx Substance Use Treatment: No Review of Systems - Review of Systems : Yes: See HPI *Physical Exam - Vital Signs Last Vital Signs Temp Pulse Resp BP Pulse Ox 98.3 F 102 H 18 120/80 98 09/04/18 20:49 09/04/18 20:49 09/04/18 20:49 09/04/18 20:49 09/04/18 20:49 - Physical Exam Comments: 09/04/18 22:27 Pelvic examination was done with female nurse in the room. There are superficial labial abrasions at the right labia at about the 11 o'clock position the left labia at about 3:00 5:00 and one at 6:00. There is no indication of secondary infections and there are no vesicular lesions ED Treatment Course - ADDITIONAL ORDERS Additional order review: Laboratory Results 09/04/18 21:04 Urine Color Yellow Urine Appearance Clear Urine pH 7.0 D Ur Specific [place] 1.012 Urine Protein Negative Urine Glucose (UA) Negative Urine Ketones Negative Urine Blood Negative Urine Nitrite Negative Urine Bilirubin Negative Urine Urobilinogen 1.0 Ur Leukocyte Esterase Negative Medical Decision Making - Medical Decision Making 09/04/18 22:28 These are lesions from shaving. Patient does describe she pulled some skin off while she was shaving these lesions are the result. I'm advising her to keep the area clean with soap and water left open to air as much as possible follow- up with [facility] *DC/Admit/Observation/Transfer Diagnosis at time of Disposition: Vaginal abrasion Diagnosis at time of Disposition: (Ruled Out): Vaginal pain - Discharge Dispostion Disposition: HOME Condition at time of disposition: Stable Decision to Admit order: No - Referrals Referrals: Malik Shepherd MD [Staff Physician] - - Patient Instructions Additional Instructions: Please keep the area clean with soap and water and left open to air as much as possible return to the emergency room for worsening symptoms and follow-up with [facility] in 1-2 days for further evaluation and treatment options. - Post Discharge Activity
== END 2018-09-04 22:29 | disposition home or self-care (01) ==
LOC: JERFT 20:47
DX: S30.814A Abrasion of vagina and vulva, initial encounter (principal); W27.8XXA Contact with other nonpowered hand tool, initial encounter; Y93.E8 Activity, other personal hygiene; Y92.038 Other place in apartment as the place of occurrence of the external cause; Y99.8 Other external cause status
CPT/HCPCS: 36415; 81003; 86593; 87086; 87389; 87491; 87591; 99281-25

== ENCOUNTER 2018-10-11 14:52 | Emergency (ER) | payer OTHER ==
[2018-10-11 15:26] VITALS: BP 105/71; PULSE 96; TEMP 98.9; BMI 22.8
--- NOTE | 2018-10-11 15:30 | PDOC ---
History of Present Illness - General Chief Complaint: Pain Stated Complaint: left knee pain Time Seen by Provider: 10/11/18 14:55 - History of Present Illness Initial Comments: 10/11/18 15:47 33yo F hx sickle cell anemia with monthly exchange transfusions presents from home c/o L knee pain x4 days. Pain began suddenly night when she was sitting on the couch. The pain is constant, sharp type, located on lateral and posterior L knee with intermittent radiation to anterior-inferior L knee, worse with extension and flexion of knee and ambulation. Pt has tried soaking, ice, icy hot, and bengay with minimal improvement. Pt has not tried any pain medications. Denies redness, swelling, warmth, injuries, fever, chills, N/V, trauma, fall, changes in activity, repetitive movement of knee or jumping or running etc, recent illness, travel, sick contacts, estrogen use, CP, SOB, other injuries. Denies hx of similar sx. Pt did have a salmonella infection in L knee when she was 13yo requiring surgery but she does not remember how it felt. Endorses multiple sickle cell crises in her back, legs, and chest prior to starting transfusions a year ago, but states this does not feel like that. PCP - unknown at [facility] - Sickle cell anemia Meds - folic acide, Exjade Surg - L knee, c/s, jean claude, port R chest All - NKDA Past History - Past Medical History Allergies/Adverse Reactions: Allergies Allergy/AdvReac Type Severity Reaction Status Date / Time No Known Allergies Allergy Verified 10/11/18 15:00 Home Medications: Ambulatory Orders Folic Acid - 1 mg PO DAILY #30 tablet 08/26/13 Naproxen 500 mg PO BID PRN #20 tablet 10/11/18 Anemia: Yes (SICKLE CELL) COPD: No - Surgical History Cholecystectomy: Yes (JUNE 2013) Orthopedic Surgery: Yes (left knee surgery 11yrears ago) - Immunization History Immunization Up to Date: Yes - Suicide/Smoking/Psychosocial Hx Smoking History: Never smoked Have you smoked in the past 12 months: No Number of Cigarettes Smoked Daily: 0 Information on smoking cessation initiated: No Hx Alcohol Use: No Drug/Substance Use Hx: No Substance Use Type: None Hx Substance Use Treatment: No Review of Systems - Review of Systems Comments:: 10/11/18 15:56 Constitutional: Negative for chills, fever, fatigue. HENT: Negative for sore throat, rhinorrhea, congestion. Eyes: Negative for visual disturbance. Respiratory: Negative for shortness of breath, cough, and wheezing. Cardiovascular: Negative for chest pain, palpitations, and leg swelling. Gastrointestinal: Negative for abdominal pain, blood in stool, constipation, diarrhea, nausea, and vomiting. Genitourinary: Negative for dysuria, flank pain, and hematuria. Musculoskeletal: Positive for L knee pain. Negative for myalgias, back pain, and neck pain. Skin: Negative for rash. Neurological: Negative for light-headedness, dizziness, syncope, weakness, numbness and headaches. Psychiatric/Behavioral: Negative for behavioral problems and confusion. *Physical Exam - Vital Signs Last Vital Signs Temp Pulse Resp BP Pulse Ox 98.9 F 96 H 20 105/71 98 10/11/18 14:52 10/11/18 14:52 10/11/18 14:52 10/11/18 14:52 10/11/18 14:52 - Physical Exam Comments: 10/11/18 15:57 Gen: Alert, NAD, comfortable-appearing. HEENT: PERRL, EOMI, MMM, NCAT. No conjunctival pallor. Sclera are non-icteric. Oropharynx is clear. CV: Regular rate and rhythm. No murmurs, rubs, or gallops. PULM: No resp distress. CTAB, no wheezes, rales, or rhonchi. ABD: soft, NT/ND, no rebound tenderness or guarding, no CVA tenderness. BACK: No TTP of c/t/l-spine. No step-offs or deformities. MSK: No bony deformities. 2+ pulses in all extremities. NEURO: AAOx3. PERRL. No gross CN deficits. Strength and sensation grossly intact throughout. EXTREMITIES: No cyanosis. No clubbing. No edema. No calf tenderness. L KNEE: +TTP lateral ligament and posterior knee/popliteal space. Collateral ligament testing shows lateral collateral ligament pain without laxity, no MCL pain or laxity. Pain on resisted extension and flexion. No bony or soft tissue deformities. Well-healed vertical scar over knee. No erythema, warmth, edema, purulence, or fluctuance. Normal ROM of knee. 5/5 strength. Normal sensation to light touch throughout LLE. No effusion, patellar crepitus, or patellar pain. No swelling or pain over the pes anserine bursa. Anterior and posterior drawer test show no ACL or PCL laxity. No mass in popliteal space. PSYCH: Normal mood and thought pattern. SKIN: Warm and dry. Normal capillary refill. No rashes. No jaundice. Medical Decision Making - Medical Decision Making 10/11/18 15:55 33yo F hx sickle cell anemia with monthly exchange transfusions presents from home with atraumatic L knee pain x4 days, with TTP of LCL and popliteal space, and pain but no laxity with LCL testing. Hemodynamically stable, LLE neurovascularly intact. Most likely muskuloskeletal, possibly ligamentous strain or arthritis due to hx of L knee surgery at 13yo. Unlikely fx or dislocation due to lack of trauma - r/o with XR. Due to posterior knee pain and TTP, also obtain duplex to r/o DVT. Low concern for sickle cell crisis due to lack of crises since starting transfusions and inconsistency of presentation with other crises. No s/s of infection concerning for septic arthritis. No swelling or TTP of bursa indicative of bursitis. -XR L knee, Duplex LLE -Naproxen 500 -Dispo: likely d/c home with ortho f/u 10/11/18 18:51 Pt feeling better s/p Naproxen. Duplex read negative. Per my read and Dr. Houston' s read, XR knee negative. Most likely muskuloskeletal. IESHA wrap given. Will d/c home w/ortho f/u. Return precautions given. Pt understands all dc instructions and all questions were answered. *DC/Admit/Observation/Transfer Diagnosis at time of Disposition: Knee pain, left - Discharge Dispostion Disposition: HOME Condition at time of disposition: Improved Decision to Admit order: No - Prescriptions Prescriptions: Naproxen 500 mg PO BID PRN #20 tablet PRN Reason: Pain - Referrals Referrals: George Moyer MD [Staff Physician] - - Patient Instructions Printed Discharge Instructions: DI for Knee Pain Additional Instructions: You have been seen in the Emergency Department for your left knee pain. Your X- Ray and Ultrasound show no signs of a fracture, dislocation, or clot. Your pain is most likely due to a musculoskeletal strain of a ligament or tendon. At this time, it's most important to limit excessive activity on that knee. If you experience pain, you can take Naproxen 500mg two times a day as needed - we have sent a prescription to your pharmacy. We have given you a referral to Dr. Moyer, an Orthopedic Surgeon. Call his office tomorrow to make a follow-up appointment for further evaluation. Follow the RICE protocol to reduce swelling and help the healing process: R - Rest the injured knee as much as possible. I - Ice. If the knee is swollen or painful, apply ice wrapped in a towel (or a bag of frozen peas wrapped in a thin towel) on the knee for approximately 10 minutes at a time. Then remove the ice pack and allow the skin to return to normal temperature before re-applying the ice pack (to avoid frostbite). Continue this while the knee is still swollen; do not apply heat while the knee is swollen. C - Compress. A tensor/IESHA bandage can be wrapped around the knee to provide more support over the lengthy healing period. This bandage can be removed when applying ice to the knee. E - Elevate the injured knee. This can be done by putting your leg up on a chair when sitting down (watching TV, reading, eating dinner, etc). Elevating the knee uses gravity to drain the swelling away from the knee Return to the ED immediately if you experience pain not controlled by over the counter medications, swelling or warmth or redness of knee, fever or chills, nausea or vomiting, numbness/tingling, or any other new or worsening symptom. - Post Discharge Activity
[2018-10-11] MEDS ORDERED: NAPROXEN 500 MG TABLET (FP) PO ONE (15:34)
[2018-10-11] MEDS ORDERED: NAPROXEN 500 MG TABLET (FP) ONE (15:42)
--- NOTE | 2018-10-11 16:04 | PDOC ---
Attending Attestation - Resident Resident Name: Monica Trevino - ED Attending Attestation I have performed the following: I have examined & evaluated the patient, The case was reviewed & discussed with the resident, I agree w/resident's findings & plan, Exceptions are as noted - HPI HPI: 10/11/18 15:59 33-year-old female patient with history of sickle cell disease with monthly exchange transfusions presents with left knee pain. Patient does have a history of left knee procedure secondary to salmonella infection when she was 13 years old. Stated for the last 4 days of having a left knee aching pain worse with movement better with rest. Reports is on the lateral aspect of the knee. Denies swelling, fevers, chills. Patient reports that she recently had an exchange transfusion. States that this feels different from her prior sickle cell crisis. She has tried wrapping and amanda marquez with some minimal effect. - Physicial Exam PE: 10/11/18 16:02 GENERAL: Awake, alert, and fully oriented, in no acute distress HEAD: No signs of trauma EYES: EOMI, sclera anicteric, conjunctiva clear ENT: Auricles normal inspection, hearing grossly normal, nares patent NECK: Normal ROM, supple EXTREMITIES: Normal range of motion, no edema. LLE: Sensation intact throughout. 2+ DP pulse. Left knee with an old scar. No obvious swelling noted compared to right. Not warm to touch. Pt able to passively and actively range her left knee fully but with discomfort. Negative anterior/posterior drawer test. Negative varus /valgus stress test. TTP left lateral knee. NEUROLOGICAL: Cranial nerves II through XII grossly intact. Normal speech SKIN: Warm, Dry, normal turgor, no rashes or lesions noted. - Medical Decision Making 10/11/18 16:04 Vital Signs Temp Pulse Resp BP Pulse Ox 98.9 F 96 H 20 105/71 98 10/11/18 14:52 10/11/18 14:52 10/11/18 14:52 10/11/18 14:52 10/11/18 14:52 Left knee pain may be secondary to muscular skeletal. This could also has some arthritic components given that the patient prior surgery. Should also consider potential sickle cell crisis though the patient reports that this feels differently. Given her medical history, we'll also obtain a duplex of the left lower extremity rule out DVT. Left knee x-ray, NSAIDs and reassess. 10/11/18 17:56 Xray reviewed by me, pending official radiology read. No fracture or dislocation. 10/11/18 18:20 Ultrasound reviewed. no DVT. RICE therapy and supportive care. Follow up with orthopedics for persistence of symptoms.
== END 2018-10-11 18:27 | disposition home or self-care (01) ==
LOC: FER 14:52
DX: M25.562 Pain in left knee (principal); D57.1 Sickle-cell disease without crisis
CPT/HCPCS: 73562-TC-LT-FY; 93971-TC; 99282-25

== ENCOUNTER 2020-10-01 10:34 | Emergency (ER) | payer BC, OTHER ==
[2020-10-01 10:51] VITALS: BP 121/58; PULSE 85; TEMP 98.2; BMI 25.4
[2020-10-01] MEDS ORDERED: diazePAM 5 MG TABLET PO ONE (11:38)
[2020-10-01] MEDS ORDERED: KETOROLAC TROMETHAMINE 30 MG/1 ML VIAL IM ONE (11:38)
[2020-10-01] MEDS ORDERED: LIDOCAINE 5% TOPICAL PATCH TP ONE (11:46)
[2020-10-01] MEDS ORDERED: diazePAM 5 MG TABLET ONE (12:12)
[2020-10-01] MEDS ORDERED: KETOROLAC TROMETHAMINE 30 MG/1 ML VIAL ONE (12:13)
[2020-10-01] MEDS ORDERED: LIDOCAINE 5% TOPICAL PATCH ONE (12:13)
[2020-10-01] MEDS ORDERED: LIDOCAINE PATCH REMOVAL MC SCH (22:00)
== END 2020-10-01 13:03 | disposition home or self-care (01) ==
LOC: JER 10:34
PROC: 3E0233Z Introduction of Anti-inflammatory into Muscle, Percutaneous Approach (ICD-10-PCS; principal; 2020-10-01)
DX: S46.911A Strain of unspecified muscle, fascia and tendon at shoulder and upper arm level, right arm, initial encounter (principal)
CPT/HCPCS: 99284-25

== ENCOUNTER 2020-10-07 18:53 | Emergency (ER) | payer BC, OTHER ==
[2020-10-07 19:08] VITALS: BP 132/83; PULSE 115; TEMP 98.6; BMI 27.3
[2020-10-07] MEDS ORDERED: predniSONE 20 MG TABLET (UD) PO ONE (20:00)
[2020-10-07] MEDS ORDERED: GABAPENTIN 100 MG CAPSULE PO ONE (20:00)
[2020-10-07] MEDS ORDERED: predniSONE 20 MG TABLET (UD) ONE (20:13)
[2020-10-07] MEDS ORDERED: GABAPENTIN 100 MG CAPSULE ONE (20:14)
== END 2020-10-07 20:34 | disposition home or self-care (01) ==
LOC: JERFT 18:53
DX: M25.511 Pain in right shoulder (principal)
CPT/HCPCS: 99283-25

== ENCOUNTER 2021-03-26 10:56 | Emergency (ER) | payer BC, OTHER ==
[2021-03-26 11:30] VITALS: BP 122/67; PULSE 100; TEMP 98.6; BMI 25.4
[2021-03-26] MEDS ORDERED: DEXAMETHASONE LIQUID 0.5 MG/5 ML PO ONE (13:07)
[2021-03-26] MEDS ORDERED: FAMOTIDINE 20 MG TABLET PO ONE (13:07)
[2021-03-26] MEDS ORDERED: FAMOTIDINE 20 MG TABLET ONE (13:13)
[2021-03-26] MEDS ORDERED: DEXAMETHASONE SOD PHOSPHATE 10 MG/1 ML VIAL ONE (13:13)
== END 2021-03-26 13:50 | disposition home or self-care (01) ==
LOC: JER 10:56
DX: L23.9 Allergic contact dermatitis, unspecified cause (principal)
CPT/HCPCS: 99283-25

== ENCOUNTER 2021-08-11 07:31 | Emergency (ER) | payer BC, OTHER ==
[2021-08-11 07:44] VITALS: TEMP 98.4; BMI 26.7
[2021-08-11] MEDS ORDERED: ACETAMINOPHEN 500 MG TABLET (FP) PO ONE (08:14)
[2021-08-11] MEDS ORDERED: SODIUM CHLORIDE 0.9% 500 ML INFUS.BAG IV ONE (08:14)
[2021-08-11] MEDS ORDERED: ACETAMINOPHEN 325 MG TABLET (FP) ONE (08:30)
[2021-08-11 09:35] LABS: BASO % 0.5 % (0-2.0); EOS % 3.9 % (0-4.5); HEMATOCRIT 25.1 % (32.4-45.2); HEMOGLOBIN 8.4 GM/dL (10.7-15.3); LYMPH % 15.2 % (8-40); MCH 29.5 pg (25.7-33.7); MCHC 33.4 g/dl (32.0-36.0); MEAN CELL VOLUME 88.3 fl (80-96); MEAN PLT VOLUME 9.8 fl (7.5-11.1); MONO % 17.8 % (3.8-10.2); NEUT % 62.6 % (42.8-82.8); PLATELET COUNT 216 10^3/uL (134-434); RBC 2.84 M/mm3 (3.60-5.2); RDW 20.5 % (11.6-15.6); RETICULOCYTES 15.64 % (0.5-1.5); WHITE BLOOD COUNT 13.3 K/mm3 (4.0-10.0)
[2021-08-11 09:50] LABS: BLOOD UREA NITROGEN 11.3 mg/dL (7-18); CALCIUM 8.5 mg/dL (8.5-10.1)
[2021-08-11 09:51] LABS: ALBUMIN 3.3 g/dl (3.4-5.0)
[2021-08-11 09:53] LABS: CREATININE 0.7 mg/dL (0.55-1.3)
[2021-08-11 09:54] LABS: BILIRUBIN,TOTAL 3.3 mg/dL (0.2-1)
[2021-08-11 09:55] LABS: TOT PROT 6.4 g/dl (6.4-8.2)
[2021-08-11 11:16] LABS: ANISOCYTOSIS 2+; MACROCYTOSIS 0; OVALOCYTE 2+; TARGET CELLS 1+; TEAR DROP CELLS 2+
[2021-08-11 11:46] VITALS: BP 112/60; PULSE 66
== END 2021-08-11 14:25 | disposition home or self-care (01) ==
LOC: JER 07:31
DX: R07.9 Chest pain, unspecified (principal); M25.571 Pain in right ankle and joints of right foot
CPT/HCPCS: 36415; 71046-TC-FY; 71250-TC; 73610-TC-RT-FY; 73630-TC-RT-FY; 80053; 84703; 85025; 85045; 87040; 93005; 93010; 99285-25

== ENCOUNTER 2021-09-28 17:33 | Inpatient (IN) | payer BC, OTHER ==
[2021-09-28] MEDS ORDERED: ACETAMINOPHEN 500 MG TABLET (FP) PO ONE (19:29)
[2021-09-28] MEDS ORDERED: SODIUM CHLORIDE 1,000 ML IV STA (19:35)
[2021-09-28] MEDS ORDERED: CEFTRIAXONE 2,000 MG in DEXTROSE 5%-WATER - 50 ML IVPB ONE (19:43)
[2021-09-28] MEDS ORDERED: ACETAMINOPHEN INJECTION 100 ML IVPB ONE (19:55)
[2021-09-28] MEDS ORDERED: CEFTRIAXONE 2 GM/100 ML BAG IVPB ONE (19:55)
[2021-09-28 20:45] LABS: VENOUS BASE EXCESS -4.1 mmol/L (-2-2); VENOUS O2 SATURATION 75.7 % (70-80); VENOUS PCO2 31.9 mmHg (38-52); VENOUS PH 7.415 (7.310-7.410)
[2021-09-28 20:50] LABS: BASO % 0.4 % (0-2.0); EOS % 0.3 % (0-4.5); HEMATOCRIT 19.4 % (32.4-45.2); LYMPH % 9.7 % (8-40); MCH 29.6 pg (25.7-33.7); MCHC 33.6 g/dl (32.0-36.0); MEAN CELL VOLUME 88.1 fl (80-96); MEAN PLT VOLUME 9.6 fl (7.5-11.1); MONO % 8.5 % (3.8-10.2); NEUT % 81.1 % (42.8-82.8); PLATELET COUNT 280 10^3/uL (134-434); RDW 19.6 % (11.6-15.6); RETICULOCYTES 21.05 % (0.5-1.5); WHITE BLOOD COUNT 21.7 K/mm3 (4.0-10.0)
[2021-09-28 20:53] LABS: EPI CELLS 2 /uL (0-25.1); HYALINE CASTS 2 /uL (0-3.1); PH,URINE 5.5 (5.0-8.0); URINE APPEARANCE CLOUDY; URINE BACTERIA >9,000 /uL (0-1359); URINE BILIRUBIN NEGATIVE (NEGATIVE); URINE COLOR YELLOW; URINE GLUCOSE (UA) NEGATIVE (NEGATIVE); URINE KETONE NEGATIVE (NEGATIVE); URINE LEUK ESTERASE 2+ (NEGATIVE); URINE NITRITE POSITIVE (NEGATIVE); URINE PROTEIN 2+ (NEGATIVE); URINE RBC 9 /uL (0-23.9); URINE WBC 509 /uL (0-25.8)
[2021-09-28 20:56] LABS: INR 1.51 (0.83-1.09); PROTHROMBIN TIME (PATIENT) 17.4 SEC (9.7-13.0)
[2021-09-28 20:59] LABS: ACTIVATED PTT 29.4 SECONDS (25.2-36.5)
[2021-09-28 21:00] LABS: HEMOGLOBIN 6.5 GM/dL (10.7-15.3)
[2021-09-28 21:19] LABS: CALCIUM 8.4 mg/dL (8.5-10.1)
[2021-09-28 21:20] LABS: ALBUMIN 3.4 g/dl (3.4-5.0); BLOOD UREA NITROGEN 21.5 mg/dL (7-18)
[2021-09-28 21:25] LABS: BILIRUBIN,TOTAL 4.2 mg/dL (0.2-1); TOT PROT 6.5 g/dl (6.4-8.2)
[2021-09-28 21:40] LABS: ANISOCYTOSIS 2+; MACROCYTOSIS 0; OVALOCYTE 1+; TARGET CELLS 2+
[2021-09-28] MEDS ORDERED: NALOXONE HCL 0.4 MG/ML VIAL ONE (21:45)
[2021-09-29] MEDS ORDERED: ACETAMINOPHEN 1000 MG/100 ML BAG IVPB ONE (03:12)
[2021-09-29] MEDS: LACTATED RINGERS SOLUTION 1,000 ML/1,000 ML INFUS.BAG IV SCH (03:33)
[2021-09-29 03:58] VITALS: BMI 24.9
[2021-09-29] MEDS: IBUPROFEN 600 MG TABLET (FP) PO PRN ×3 (06:20→21:43)
[2021-09-29] MEDS ORDERED: CEFTRIAXONE 2 GM in DEXTROSE 5%-WATER 100 ML IVPB SCH (10:00)
[2021-09-29] MEDS ORDERED: CEFTRIAXONE 1 GM in DEXTROSE 5%-WATER - 50 ML IVPB SCH (10:00)
[2021-09-29] MEDS ORDERED: DEXTROSE 5%-WATER 100 ML IVPB ONE (10:31)
[2021-09-29] MEDS: ENOXAPARIN NA (PORCINE) 40 MG/0.4 ML DISP.SYRIN SQ SCH (10:35)
[2021-09-29 17:37] LABS: BASO % 0.5 % (0-2.0); EOS % 2.3 % (0-4.5); HEMATOCRIT 17.6 % (32.4-45.2); LYMPH % 14.1 % (8-40); MCH 29.5 pg (25.7-33.7); MCHC 33.7 g/dl (32.0-36.0); MEAN CELL VOLUME 87.5 fl (80-96); MEAN PLT VOLUME 10.2 fl (7.5-11.1); MONO % 9.3 % (3.8-10.2); NEUT % 73.8 % (42.8-82.8); PLATELET COUNT 262 10^3/uL (134-434); RBC 2.01 M/mm3 (3.60-5.2); RDW 18.7 % (11.6-15.6); RETICULOCYTES 18.75 % (0.5-1.5); WHITE BLOOD COUNT 19.7 K/mm3 (4.0-10.0)
[2021-09-29 17:46] LABS: HEMOGLOBIN 5.9 GM/dL (10.7-15.3)
[2021-09-29 17:57] LABS: CALCIUM 8.2 mg/dL (8.5-10.1)
[2021-09-29 17:58] LABS: ALBUMIN 2.9 g/dl (3.4-5.0); BLOOD UREA NITROGEN 16.5 mg/dL (7-18)
[2021-09-29 18:01] LABS: CREATININE 0.8 mg/dL (0.55-1.3)
[2021-09-29 18:03] LABS: BILIRUBIN,TOTAL 2.8 mg/dL (0.2-1); TOT PROT 6.2 g/dl (6.4-8.2)
[2021-09-29] MEDS: FOLIC ACID 1 MG TABLET (FP) PO SCH (19:36)
[2021-09-29] MEDS ORDERED: CEFEPIME HCL 2 GM VIAL (RESTRICTED TO ID) ONE (21:24)
[2021-09-29] MEDS ORDERED: DEXTROSE 5%-WATER - 50 ML IVPB ONE (21:24)
[2021-09-29] MEDS: CEFEPIME IVPB SCH (21:43)
[2021-09-29] MEDS: DEXTROSE 5% IVPB SCH (21:43)
[2021-09-29] MEDS: WATER IVPB SCH (21:43)
[2021-09-30] MEDS: LACTATED RINGERS SOLUTION 1,000 ML/1,000 ML INFUS.BAG IV SCH (01:57)
[2021-09-30 08:32] LABS: BASO % 0.4 % (0-2.0); EOS % 3.1 % (0-4.5); HEMATOCRIT 16.8 % (32.4-45.2); LYMPH % 10.4 % (8-40); MCH 29.2 pg (25.7-33.7); MCHC 34.1 g/dl (32.0-36.0); MEAN CELL VOLUME 85.5 fl (80-96); MONO % 10.4 % (3.8-10.2); NEUT % 75.7 % (42.8-82.8); PLATELET COUNT 280 10^3/uL (134-434); RBC 1.97 M/mm3 (3.60-5.2); RDW 17.4 % (11.6-15.6); WHITE BLOOD COUNT 17.3 K/mm3 (4.0-10.0)
[2021-09-30 08:36] LABS: HEMOGLOBIN 5.7 GM/dL (10.7-15.3)
[2021-09-30 09:04] LABS: ALBUMIN 2.9 g/dl (3.4-5.0); BLOOD UREA NITROGEN 13.2 mg/dL (7-18)
[2021-09-30 09:05] LABS: BILIRUBIN,TOTAL 3.9 mg/dL (0.2-1); TOT PROT 6.4 g/dl (6.4-8.2)
[2021-09-30 09:07] LABS: CREATININE 0.7 mg/dL (0.55-1.3); PHOSPHOROUS 3.3 mg/dL (2.5-4.9)
[2021-09-30 09:09] LABS: CALCIUM 8.6 mg/dL (8.5-10.1)
[2021-09-30 09:10] LABS: MAGNESIUM 2.1 mg/dL (1.8-2.4)
[2021-09-30] MEDS ORDERED: CEFEPIME HCL 2 GM VIAL (RESTRICTED TO ID) ONE ×2 (10:29→21:56)
[2021-09-30] MEDS ORDERED: DEXTROSE 5%-WATER - 50 ML IVPB ONE ×2 (10:29→21:56)
[2021-09-30] MEDS: FOLIC ACID 1 MG TABLET (FP) PO SCH (10:33)
[2021-09-30] MEDS: WATER IVPB SCH ×2 (10:33→21:58)
[2021-09-30] MEDS: CEFEPIME IVPB SCH ×2 (10:33→21:58)
[2021-09-30] MEDS: DEXTROSE 5% IVPB SCH ×2 (10:33→21:58)
[2021-09-30] MEDS: ENOXAPARIN NA (PORCINE) 40 MG/0.4 ML DISP.SYRIN SQ SCH (10:34)
[2021-09-30] MEDS ORDERED: HEPARIN NA (PORCINE) 5,000 UNITS/ML 1ML VIAL IVPUSH PRN (10:48)
[2021-09-30] MEDS: ACETAMINOPHEN 500 MG TABLET (FP) PO PRN ×2 (10:50→21:59)
[2021-09-30] MEDS ORDERED: VANCOMYCIN 1 GRAM (PRE-DOCKED) 1,000 MG/250 ML BAG IVPB ONE (12:02)
[2021-09-30] MEDS ORDERED: IBUPROFEN 400 MG TABLET (FP) PO PRN (14:03)
[2021-09-30] MEDS ORDERED: VANCOMYCIN 1,000 MG in SODIUM CHLORIDE 1,000 MG/250 ML INFUS.BAG IVPB ONE (14:45)
[2021-10-01] MEDS ORDERED: CEFEPIME HCL 2 GM VIAL (RESTRICTED TO ID) ONE ×2 (09:57→21:19)
[2021-10-01] MEDS ORDERED: DEXTROSE 5%-WATER - 50 ML IVPB ONE ×2 (09:57→21:20)
[2021-10-01] MEDS: LACTATED RINGERS SOLUTION 1,000 ML/1,000 ML INFUS.BAG IV SCH (10:04)
[2021-10-01] MEDS: CEFEPIME IVPB SCH ×2 (10:07→22:02)
[2021-10-01] MEDS: WATER IVPB SCH ×2 (10:07→22:02)
[2021-10-01] MEDS: FOLIC ACID 1 MG TABLET (FP) PO SCH (10:07)
[2021-10-01] MEDS: DEXTROSE 5% IVPB SCH ×2 (10:07→22:02)
[2021-10-01] MEDS: ENOXAPARIN NA (PORCINE) 40 MG/0.4 ML DISP.SYRIN SQ SCH (10:10)
[2021-10-01 11:26] LABS: EOS % 3.9 % (0-4.5); HEMATOCRIT 20.2 % (32.4-45.2); LYMPH % 20.2 % (8-40); MCH 28.5 pg (25.7-33.7); MCHC 33.6 g/dl (32.0-36.0); MEAN CELL VOLUME 84.7 fl (80-96); MEAN PLT VOLUME 10.3 fl (7.5-11.1); NEUT % 66.3 % (42.8-82.8); PLATELET COUNT 299 10^3/uL (134-434); RBC 2.38 M/mm3 (3.60-5.2); RDW 16.9 % (11.6-15.6); WHITE BLOOD COUNT 12.9 K/mm3 (4.0-10.0)
[2021-10-01 11:27] LABS: BASO % 0.6 % (0-2.0)
[2021-10-01 11:40] LABS: HEMOGLOBIN 6.8 GM/dL (10.7-15.3)
[2021-10-01 11:45] LABS: BLOOD UREA NITROGEN 9.2 mg/dL (7-18); CALCIUM 8.4 mg/dL (8.5-10.1)
[2021-10-01 11:49] LABS: BILIRUBIN,TOTAL 2.6 mg/dL (0.2-1); CREATININE 0.8 mg/dL (0.55-1.3); TOT PROT 6.3 g/dl (6.4-8.2)
[2021-10-01] MEDS: VANCOMYCIN 1 GRAM (PRE-DOCKED) 1,000 MG/250 ML BAG IVPB SCH (14:42)
[2021-10-02 08:58] LABS: BASO % 1.1 % (0-2.0); EOS % 5.1 % (0-4.5); HEMATOCRIT 20.9 % (32.4-45.2); LYMPH % 17.5 % (8-40); MCH 28.7 pg (25.7-33.7); MCHC 33.6 g/dl (32.0-36.0); MEAN CELL VOLUME 85.3 fl (80-96); MEAN PLT VOLUME 9.8 fl (7.5-11.1); MONO % 13.8 % (3.8-10.2); NEUT % 62.5 % (42.8-82.8); PLATELET COUNT 320 10^3/uL (134-434); RBC 2.45 M/mm3 (3.60-5.2); WHITE BLOOD COUNT 14.5 K/mm3 (4.0-10.0)
[2021-10-02 09:23] LABS: BLOOD UREA NITROGEN 11.6 mg/dL (7-18)
[2021-10-02 09:25] LABS: CALCIUM 8.6 mg/dL (8.5-10.1)
[2021-10-02 09:27] LABS: BILIRUBIN,TOTAL 2.2 mg/dL (0.2-1); CREATININE 0.7 mg/dL (0.55-1.3); TOT PROT 6.4 g/dl (6.4-8.2)
[2021-10-02] MEDS: FOLIC ACID 1 MG TABLET (FP) PO SCH (10:57)
[2021-10-02] MEDS: ENOXAPARIN NA (PORCINE) 40 MG/0.4 ML DISP.SYRIN SQ SCH (10:58)
[2021-10-02] MEDS ORDERED: CEFEPIME 2 GM in DEXTROSE 5%-WATER 100 ML IVPB SCH ×2 (11:01→12:00)
[2021-10-02] MEDS: LACTATED RINGERS SOLUTION 1,000 ML/1,000 ML INFUS.BAG IV SCH (12:38)
[2021-10-02] MEDS: DEXTROSE 5% IVPB SCH (12:41)
[2021-10-02] MEDS: WATER IVPB SCH (12:41)
[2021-10-02] MEDS: CEFEPIME IVPB SCH (12:41)
[2021-10-02] MEDS: VANCOMYCIN 1 GRAM (PRE-DOCKED) 1,000 MG/250 ML BAG IVPB SCH (15:14)
[2021-10-02] MEDS: CEFAZOLIN SODIUM 2 GM in DEXTROSE 5%-WATER 100 ML IVPB SCH (18:04)
[2021-10-03] MEDS: CEFAZOLIN SODIUM 2 GM in DEXTROSE 5%-WATER 100 ML IVPB SCH ×3 (02:04→17:56)
[2021-10-03] MEDS: LACTATED RINGERS SOLUTION 1,000 ML/1,000 ML INFUS.BAG IV SCH ×3 (02:05→15:53)
[2021-10-03 09:24] LABS: BASO % 1.5 % (0-2.0); EOS % 6.2 % (0-4.5); HEMATOCRIT 21.9 % (32.4-45.2); HEMOGLOBIN 7.2 GM/dL (10.7-15.3); MCH 28.9 pg (25.7-33.7); MCHC 32.9 g/dl (32.0-36.0); MEAN PLT VOLUME 10.1 fl (7.5-11.1); MONO % 13.3 % (3.8-10.2); PLATELET COUNT 334 10^3/uL (134-434); RBC 2.49 M/mm3 (3.60-5.2); RDW 17.7 % (11.6-15.6)
[2021-10-03 09:26] LABS: WHITE BLOOD COUNT 13.7 K/mm3 (4.0-10.0)
[2021-10-03] MEDS: FOLIC ACID 1 MG TABLET (FP) PO SCH (10:12)
[2021-10-03] MEDS: ENOXAPARIN NA (PORCINE) 40 MG/0.4 ML DISP.SYRIN SQ SCH (10:12)
[2021-10-03 10:16] LABS: ALBUMIN 3.1 g/dl (3.4-5.0); BLOOD UREA NITROGEN 6.2 mg/dL (7-18); CREATININE 0.7 mg/dL (0.55-1.3)
[2021-10-03 10:17] LABS: BILIRUBIN,TOTAL 1.6 mg/dL (0.2-1); TOT PROT 6.6 g/dl (6.4-8.2)
[2021-10-03] MEDS: VANCOMYCIN 1 GRAM (PRE-DOCKED) 1,000 MG/250 ML BAG IVPB SCH (15:44)
[2021-10-03] MEDS: ACETAMINOPHEN 500 MG TABLET (FP) PO PRN (21:07)
[2021-10-04] MEDS: LACTATED RINGERS SOLUTION 1,000 ML/1,000 ML INFUS.BAG IV SCH ×2 (01:52→09:46)
[2021-10-04] MEDS: CEFAZOLIN SODIUM 2 GM in DEXTROSE 5%-WATER 100 ML IVPB SCH ×3 (01:54→17:25)
[2021-10-04 09:24] LABS: HEMATOCRIT 23.6 % (32.4-45.2); HEMOGLOBIN 7.9 GM/dL (10.7-15.3); MCH 29.6 pg (25.7-33.7); MCHC 33.5 g/dl (32.0-36.0); MEAN CELL VOLUME 88.4 fl (80-96); MEAN PLT VOLUME 10.3 fl (7.5-11.1); PLATELET COUNT 321 10^3/uL (134-434); RBC 2.67 M/mm3 (3.60-5.2); RDW 19.4 % (11.6-15.6)
[2021-10-04 09:27] LABS: WHITE BLOOD COUNT 16.2 K/mm3 (4.0-10.0)
[2021-10-04 10:07] LABS: ANISOCYTOSIS 1+; MACROCYTOSIS 1+
[2021-10-04 10:30] LABS: ALBUMIN 3.3 g/dl (3.4-5.0); BLOOD UREA NITROGEN 9.4 mg/dL (7-18); CALCIUM 9.1 mg/dL (8.5-10.1)
[2021-10-04] MEDS: FOLIC ACID 1 MG TABLET (FP) PO SCH ×2 (10:30→13:29)
[2021-10-04 10:32] LABS: CREATININE 0.7 mg/dL (0.55-1.3)
[2021-10-04 10:34] LABS: BILIRUBIN,TOTAL 1.5 mg/dL (0.2-1); TOT PROT 7.1 g/dl (6.4-8.2)
[2021-10-04] MEDS: ENOXAPARIN NA (PORCINE) 40 MG/0.4 ML DISP.SYRIN SQ SCH (13:29)
[2021-10-04] MEDS: VANCOMYCIN/WATER FOR INJ (PEG) 750 MG/150 ML BAG IVPB SCH (13:29)
[2021-10-04] MEDS: IBUPROFEN 600 MG TABLET (FP) PO PRN (14:44)
[2021-10-05] MEDS: VANCOMYCIN/WATER FOR INJ (PEG) 750 MG/150 ML BAG IVPB SCH ×2 (01:22→13:26)
[2021-10-05] MEDS: CEFAZOLIN SODIUM 2 GM in DEXTROSE 5%-WATER 100 ML IVPB SCH ×2 (01:22→09:35)
[2021-10-05] MEDS: ACETAMINOPHEN 500 MG TABLET (FP) PO PRN (08:07)
[2021-10-05] MEDS: FOLIC ACID 1 MG TABLET (FP) PO SCH (09:35)
[2021-10-05] MEDS: ENOXAPARIN NA (PORCINE) 40 MG/0.4 ML DISP.SYRIN SQ SCH (09:35)
[2021-10-05] MEDS: IBUPROFEN 600 MG TABLET (FP) PO PRN (09:42)
[2021-10-05 16:20] VITALS: BP 133/76; PULSE 68; TEMP 98.8
== END 2021-10-05 17:13 | disposition home or self-care (01) | DRG 872 ==
LOC: JER 17:33 → JERBED 22:43 → J8W 09-29 02:50
PROVIDERS: ADMIT Hospitalist; ATTEND Internal Medicine
PROC: 30233N1 Transfusion of Nonautologous Red Blood Cells into Peripheral Vein, Percutaneous Approach (ICD-10-PCS; principal; 2021-09-30)
DX: A41.51 Sepsis due to Escherichia coli [E. coli] (principal); N39.0 Urinary tract infection, site not specified; R00.0 Tachycardia, unspecified; R65.20 Severe sepsis without septic shock; D72.829 Elevated white blood cell count, unspecified; D57.80 Other sickle-cell disorders without crisis; M54.89 Other dorsalgia; R91.8 Other nonspecific abnormal finding of lung field
CPT/HCPCS: 0241U-QW; 36415; 36430; 71045-TC-FY; 76775-TC; 80053; 81003; 82728; 82803; 83010; 83540; 83550; 83605; 83615; 83735; 84100; 84484; 84703; 85025; 85045; 85610; 85730; 86850; 86880; 86900; 86901; 86922; 87040; 87086; 87186; 87491; 87591; 87661; 93005; 93010; 93306-TC; 97116-GP; 97161-GP; 99285-25; G0480; P9058

== ENCOUNTER 2021-10-06 10:38 | Day surgery (SDC) | payer BC, OTHER ==
[~2021-10-06 10:38] MED LIST: DAPTOMYCIN IVPB ONE; SODIUM CHLORIDE IVPB ONE
[2021-10-06 11:54] VITALS: TEMP 98.8
[2021-10-06 12:52] VITALS: BP 116/69; PULSE 80
== END 2021-10-06 13:05 | disposition home or self-care (01) ==
LOC: JINFUSION 10:38 → J7W 10:39 → JINFUSION 13:05
PROVIDERS: ATTEND Internal Medicine
DX: N12 Tubulo-interstitial nephritis, not specified as acute or chronic (principal)
CPT/HCPCS: 96365; J0878

== ENCOUNTER 2021-10-07 10:58 | Day surgery (SDC) | payer BC, OTHER ==
[2021-10-07] MEDS ORDERED: SODIUM CHLORIDE IVPB ONE (11:30)
[2021-10-07] MEDS ORDERED: DAPTOMYCIN IVPB ONE (11:30)
[2021-10-07 12:28] VITALS: BP 113/58; PULSE 72; TEMP 98.7
== END 2021-10-07 12:28 | disposition home or self-care (01) ==
LOC: JINFUSION 10:58 → J7W 10:59 → JINFUSION 12:28
PROVIDERS: ATTEND Internal Medicine
DX: N12 Tubulo-interstitial nephritis, not specified as acute or chronic (principal)
CPT/HCPCS: 96365; J0878

== ENCOUNTER 2021-10-08 07:37 | Day surgery (SDC) | payer BC, OTHER ==
[2021-10-08 14:07] VITALS: TEMP 97.5
[2021-10-08 14:14] VITALS: BP 127/71; PULSE 80
[2021-10-08] MEDS ORDERED: PORTA CATH FLUSH 10 ML IVPUSH PRN (14:14)
== END 2021-10-08 09:15 | disposition home or self-care (01) ==
LOC: J7W 07:37 → JINFUSION 07:37
PROVIDERS: ATTEND Internal Medicine
DX: N12 Tubulo-interstitial nephritis, not specified as acute or chronic (principal)
CPT/HCPCS: 96365; J0878

== ENCOUNTER 2021-10-09 07:41 | Day surgery (SDC) | payer BC, OTHER ==
[2021-10-09] MEDS ORDERED: DAPTOMYCIN 360 MG in SODIUM CHLORIDE 50 ML IVPB SCH (08:00)
[2021-10-09 17:32] VITALS: BP 98/63; PULSE 68; TEMP 98.2
== END 2021-10-09 09:00 | disposition home or self-care (01) ==
LOC: JINFUSION 07:41
PROVIDERS: ATTEND Internal Medicine
DX: N12 Tubulo-interstitial nephritis, not specified as acute or chronic (principal)
CPT/HCPCS: 96365; J0878

== ENCOUNTER 2021-10-10 07:14 | Day surgery (SDC) | payer BC, OTHER ==
[2021-10-10] MEDS ORDERED: DAPTOMYCIN 360 MG in SODIUM CHLORIDE 50 ML IVPB ONE (07:45)
[2021-10-10] MEDS ORDERED: PORTA CATH FLUSH 10 ML IVPUSH PRN (07:47)
[2021-10-10 08:05] LABS: BASO % 1.1 % (0-2.0); CALCIUM 9.2 mg/dL (8.5-10.1); EOS % 4.4 % (0-4.5); HEMATOCRIT 24.1 % (32.4-45.2); HEMOGLOBIN 8.1 GM/dL (10.7-15.3); MCH 29.7 pg (25.7-33.7); MCHC 33.6 g/dl (32.0-36.0); MEAN CELL VOLUME 88.3 fl (80-96); MEAN PLT VOLUME 9.8 fl (7.5-11.1); MONO % 11.9 % (3.8-10.2); NEUT % 54.6 % (42.8-82.8); PLATELET COUNT 396 10^3/uL (134-434); RBC 2.73 M/mm3 (3.60-5.2); RDW 19.8 % (11.6-15.6); WHITE BLOOD COUNT 13.1 K/mm3 (4.0-10.0)
[2021-10-10 08:06] LABS: ALBUMIN 3.5 g/dl (3.4-5.0); BLOOD UREA NITROGEN 20.6 mg/dL (7-18)
[2021-10-10 08:11] LABS: BILIRUBIN,TOTAL 2.7 mg/dL (0.2-1)
[2021-10-10 08:15] VITALS: BP 112/68; PULSE 89
[2021-10-10 08:16] VITALS: TEMP 98.8
== END 2021-10-10 08:25 | disposition home or self-care (01) ==
LOC: JINFUSION 07:14 → J7W 07:15 → JINFUSION 08:25
PROVIDERS: ATTEND Internal Medicine
DX: N12 Tubulo-interstitial nephritis, not specified as acute or chronic (principal)
CPT/HCPCS: 36415; 80053; 82550; 85025; 96365; J0878

== ENCOUNTER 2021-10-11 07:47 | Day surgery (SDC) | payer BC, OTHER ==
[2021-10-11] MEDS ORDERED: DAPTOMYCIN 360 MG in SODIUM CHLORIDE 50 ML IVPB ONE (08:00)
[2021-10-11 09:29] VITALS: TEMP 98.7
[2021-10-11] MEDS ORDERED: PORTA CATH FLUSH 10 ML IVPUSH PRN (09:34)
[2021-10-11 09:35] VITALS: BP 106/65; PULSE 71
== END 2021-10-11 09:05 | disposition home or self-care (01) ==
LOC: JINFUSION 07:47 → J7W 07:48 → JINFUSION 09:05
PROVIDERS: ATTEND Internal Medicine
DX: A41.51 Sepsis due to Escherichia coli [E. coli] (principal); N39.0 Urinary tract infection, site not specified
CPT/HCPCS: 96365; J0878

== ENCOUNTER 2021-10-12 07:29 | Day surgery (SDC) | payer BC, OTHER ==
[~2021-10-12 07:29] MED LIST changes: +DAPTOMYCIN 360 MG in SODIUM CHLORIDE 50 ML IVPB ONE; -DAPTOMYCIN IVPB ONE; -SODIUM CHLORIDE IVPB ONE
[2021-10-12 15:15] VITALS: BP 107/61; PULSE 77; RESP 18; TEMP 98.5
== END 2021-10-12 08:15 | disposition home or self-care (01) ==
LOC: JINFUSION 07:29 → J7W 07:32 → JINFUSION 08:15
PROVIDERS: ATTEND Internal Medicine
DX: A41.51 Sepsis due to Escherichia coli [E. coli] (principal); N39.0 Urinary tract infection, site not specified
CPT/HCPCS: 96365; J0878

== ENCOUNTER 2021-10-13 08:41 | Day surgery (SDC) | payer BC, OTHER ==
[2021-10-13 09:51] VITALS: BP 110/68; PULSE 77; RESP 20; TEMP 98.7
== END 2021-10-13 09:52 | disposition home or self-care (01) ==
LOC: JINFUSION 08:41 → J7W 08:42 → JINFUSION 09:52
PROVIDERS: ATTEND Internal Medicine
DX: A41.51 Sepsis due to Escherichia coli [E. coli] (principal); N39.0 Urinary tract infection, site not specified
CPT/HCPCS: 96365; J0878

== ENCOUNTER 2021-10-14 08:24 | Day surgery (SDC) | payer BC, OTHER ==
[2021-10-14 12:54] VITALS: BP 122/73; PULSE 70; RESP 20; TEMP 98.3
== END 2021-10-14 09:30 | disposition home or self-care (01) ==
LOC: JINFUSION 08:24 → J7W 08:29 → JINFUSION 09:30
PROVIDERS: ATTEND Internal Medicine
DX: A41.51 Sepsis due to Escherichia coli [E. coli] (principal); N39.0 Urinary tract infection, site not specified
CPT/HCPCS: 96365; J0878

== ENCOUNTER 2021-10-15 08:00 | Day surgery (SDC) | payer BC, OTHER ==
[2021-10-15 08:15] VITALS: BP 116/61; PULSE 83; RESP 18; TEMP 98.4
[2021-10-15] MEDS ORDERED: PORTA CATH FLUSH 10 ML IVPUSH PRN (08:25)
== END 2021-10-15 08:40 | disposition home or self-care (01) ==
LOC: J7W 08:00 → JINFUSION 08:00
PROVIDERS: ATTEND Internal Medicine
DX: A41.51 Sepsis due to Escherichia coli [E. coli] (principal); N39.0 Urinary tract infection, site not specified
CPT/HCPCS: 96365; J0878

== ENCOUNTER 2021-10-16 07:45 | Day surgery (SDC) | payer BC, OTHER ==
[2021-10-16 18:02] VITALS: BP 104/61; PULSE 73; RESP 16; TEMP 98.6
== END 2021-10-16 08:25 | disposition home or self-care (01) ==
LOC: JINFUSION 07:45 → J7W 07:46 → JINFUSION 08:25
PROVIDERS: ATTEND Internal Medicine
DX: A41.51 Sepsis due to Escherichia coli [E. coli] (principal); N39.0 Urinary tract infection, site not specified
CPT/HCPCS: 96365; J0878

== ENCOUNTER 2021-10-17 07:41 | Day surgery (SDC) | payer BC, OTHER ==
[2021-10-17] MEDS ORDERED: DAPTOMYCIN 360 MG in SODIUM CHLORIDE 50 ML IVPB ONE (08:00)
[2021-10-17 08:06] VITALS: BP 97/62; PULSE 75; RESP 16; TEMP 98.3
[2021-10-17] MEDS ORDERED: PORTA CATH FLUSH 10 ML IVPUSH PRN (08:06)
== END 2021-10-17 09:15 | disposition home or self-care (01) ==
LOC: J7W 07:41 → JINFUSION 07:41
PROVIDERS: ATTEND Internal Medicine
DX: A41.51 Sepsis due to Escherichia coli [E. coli] (principal); N39.0 Urinary tract infection, site not specified
CPT/HCPCS: 96365; J0878

== ENCOUNTER 2021-10-18 08:01 | Day surgery (SDC) | payer BC, OTHER ==
[2021-10-18 08:37] VITALS: BP 98/56; PULSE 75; RESP 18; TEMP 98
[2021-10-18] MEDS ORDERED: PORTA CATH FLUSH 10 ML IVPUSH PRN (08:43)
== END 2021-10-18 09:00 | disposition home or self-care (01) ==
LOC: JINFUSION 08:01 → J7W 08:02 → JINFUSION 09:00
PROVIDERS: ATTEND Internal Medicine
DX: A41.51 Sepsis due to Escherichia coli [E. coli] (principal); N39.0 Urinary tract infection, site not specified
CPT/HCPCS: 96365; J0878

== ENCOUNTER 2021-10-19 07:35 | Day surgery (SDC) | payer BC, OTHER ==
[2021-10-19 10:49] VITALS: BP 105/64; PULSE 90; RESP 18; TEMP 98.9
[2021-10-19] MEDS ORDERED: PORTA CATH FLUSH 10 ML IVPUSH PRN (11:00)
== END 2021-10-19 08:30 | disposition home or self-care (01) ==
LOC: JINFUSION 07:35 → J7W 07:36 → JINFUSION 08:30
PROVIDERS: ATTEND Internal Medicine
DX: A41.51 Sepsis due to Escherichia coli [E. coli] (principal); N39.0 Urinary tract infection, site not specified
CPT/HCPCS: 96365; J0878

== ENCOUNTER 2021-10-28 18:45 | Inpatient (IN) | payer BC, OTHER ==
[2021-10-28] MEDS ORDERED: VANCOMYCIN 1 GM in D5W (PRE-DOCKED) 1,000 MG/250 ML IVPB ONE (20:05)
[2021-10-28] MEDS ORDERED: ACETAMINOPHEN 1000 MG/100 ML BAG IVPB ONE (20:14)
[2021-10-28] MEDS ORDERED: SODIUM CHLORIDE 0.9% 500 ML INFUS.BAG IV ONE (20:14)
[2021-10-28] MEDS ORDERED: ACETAMINOPHEN INJECTION 100 ML IVPB ONE (20:16)
[2021-10-28] MEDS ORDERED: VANCOMYCIN/WATER FOR INJ (PEG) 1,000 MG/200 ML BAG IVPB ONE (20:17)
[2021-10-28 20:34] LABS: BASO % 0.9 % (0-2.0); EOS % 3.2 % (0-4.5); HEMOGLOBIN 7.1 GM/dL (10.7-15.3); LYMPH % 32.1 % (8-40); MCH 29.9 pg (25.7-33.7); MCHC 33.6 g/dl (32.0-36.0); MEAN CELL VOLUME 89.1 fl (80-96); MEAN PLT VOLUME 9.9 fl (7.5-11.1); MONO % 12.1 % (3.8-10.2); NEUT % 51.7 % (42.8-82.8); PLATELET COUNT 241 10^3/uL (134-434); RBC 2.36 M/mm3 (3.60-5.2); RDW 22.7 % (11.6-15.6); WHITE BLOOD COUNT 15.7 K/mm3 (4.0-10.0)
[2021-10-28 20:38] LABS: INR 1.27 (0.83-1.09); PROTHROMBIN TIME (PATIENT) 14.6 SEC (9.7-13.0)
[2021-10-28 20:44] LABS: ALBUMIN 3.7 g/dl (3.4-5.0); BLOOD UREA NITROGEN 18.7 mg/dL (7-18); CALCIUM 8.3 mg/dL (8.5-10.1)
[2021-10-28 20:49] LABS: BILIRUBIN,TOTAL 3.5 mg/dL (0.2-1); TOT PROT 7.2 g/dl (6.4-8.2)
[2021-10-28 22:09] LABS: SICKELED CELLS 1+
[2021-10-28 22:11] LABS: PLATELET ESTIMATE NORMAL
[2021-10-29 02:12] VITALS: BMI 25.0
[2021-10-29] MEDS ORDERED: VANCOMYCIN 1 GM in D5W (PRE-DOCKED) 1,000 MG/250 ML IVPB ONE (03:12)
[2021-10-29] MEDS ORDERED: POLYETHYLENE GLYCOL (HEALTHYLAX) 3350 17 GM PACKET PO ONE (03:30)
[2021-10-29] MEDS ORDERED: SENNOSIDES 8.6MG TABLET (FP) PO PRN (04:15)
[2021-10-29] MEDS ORDERED: VANCOMYCIN 1 GM/200 ML PREMIX BAG IVPB ONE ×2 (08:00→20:00)
[2021-10-29 08:06] LABS: BILIRUBIN,DIRECT 0.9 mg/dL (0.0-0.2)
[2021-10-29] MEDS: oxyCODONE HCL 5 MG TABLET PO PRN (08:56)
[2021-10-29 09:24] LABS: HEMATOCRIT 20.7 % (32.4-45.2); HEMOGLOBIN 7.1 GM/dL (10.7-15.3); MCH 30.5 pg (25.7-33.7); MCHC 34.1 g/dl (32.0-36.0); MEAN CELL VOLUME 89.5 fl (80-96); MEAN PLT VOLUME 10.2 fl (7.5-11.1); PLATELET COUNT 235 10^3/uL (134-434); RBC 2.31 M/mm3 (3.60-5.2); RDW 22.8 % (11.6-15.6)
[2021-10-29 09:30] LABS: WHITE BLOOD COUNT 15.5 K/mm3 (4.0-10.0)
[2021-10-29 09:48] LABS: BILIRUBIN,TOTAL 3.4 mg/dL (0.2-1); TOT PROT 7.1 g/dl (6.4-8.2)
[2021-10-29 09:49] LABS: BLOOD UREA NITROGEN 17.1 mg/dL (7-18); CALCIUM 8.2 mg/dL (8.5-10.1); MAGNESIUM 2.2 mg/dL (1.8-2.4)
[2021-10-29 09:51] LABS: ALBUMIN 3.5 g/dl (3.4-5.0)
[2021-10-29 09:53] LABS: CREATININE 0.8 mg/dL (0.55-1.3); PHOSPHOROUS 3.2 mg/dL (2.5-4.9)
[2021-10-29] MEDS ORDERED: ENOXAPARIN NA (PORCINE) 40 MG/0.4 ML DISP.SYRIN SQ SCH (10:00)
[2021-10-29] MEDS: CEFAZOLIN SODIUM 2 GM in DEXTROSE 5%-WATER 100 ML IVPB SCH ×2 (13:22→18:50)
[2021-10-29] MEDS ORDERED: SENNOSIDES 8.6MG TABLET (FP) PO SCH (22:00)
[2021-10-30] MEDS: CEFAZOLIN SODIUM 2 GM in DEXTROSE 5%-WATER 100 ML IVPB SCH ×3 (02:53→20:10)
[2021-10-30] MEDS: oxyCODONE HCL 5 MG TABLET PO PRN (08:52)
[2021-10-30 09:59] LABS: BASO % 1.2 % (0-2.0); EOS % 3.2 % (0-4.5); HEMATOCRIT 21.8 % (32.4-45.2); HEMOGLOBIN 7.4 GM/dL (10.7-15.3); LYMPH % 23.6 % (8-40); MCH 30.6 pg (25.7-33.7); MCHC 34.1 g/dl (32.0-36.0); MEAN CELL VOLUME 89.7 fl (80-96); MEAN PLT VOLUME 10.1 fl (7.5-11.1); MONO % 11.7 % (3.8-10.2); NEUT % 60.3 % (42.8-82.8); PLATELET COUNT 252 10^3/uL (134-434); RBC 2.43 M/mm3 (3.60-5.2); RDW 24.8 % (11.6-15.6); WHITE BLOOD COUNT 12.8 K/mm3 (4.0-10.0)
[2021-10-30 10:37] LABS: ALBUMIN 3.5 g/dl (3.4-5.0); BLOOD UREA NITROGEN 10.1 mg/dL (7-18); CALCIUM 8.9 mg/dL (8.5-10.1); MAGNESIUM 2.1 mg/dL (1.8-2.4)
[2021-10-30 10:41] LABS: BILIRUBIN,TOTAL 4.1 mg/dL (0.2-1); CREATININE 0.8 mg/dL (0.55-1.3); PHOSPHOROUS 3.6 mg/dL (2.5-4.9)
[2021-10-30 10:43] LABS: TOT PROT 7.1 g/dl (6.4-8.2)
[2021-10-30] MEDS: FOLIC ACID 1 MG TABLET (FP) PO SCH (12:16)
[2021-10-31] MEDS: CEFAZOLIN SODIUM 2 GM in DEXTROSE 5%-WATER 100 ML IVPB SCH ×3 (03:37→17:41)
[2021-10-31 08:55] LABS: BASO % 2.1 % (0-2.0); EOS % 2.8 % (0-4.5); HEMATOCRIT 21.1 % (32.4-45.2); HEMOGLOBIN 7.2 GM/dL (10.7-15.3); LYMPH % 24.7 % (8-40); MCH 30.6 pg (25.7-33.7); MCHC 34.2 g/dl (32.0-36.0); MEAN CELL VOLUME 89.5 fl (80-96); MONO % 12.5 % (3.8-10.2); NEUT % 57.9 % (42.8-82.8); PLATELET COUNT 254 10^3/uL (134-434); RBC 2.35 M/mm3 (3.60-5.2)
[2021-10-31 08:59] LABS: WHITE BLOOD COUNT 14.4 K/mm3 (4.0-10.0)
[2021-10-31] MEDS ORDERED: LIDOCAINE HCL 1%, 10 MG/ML (20ML VIAL) ONE (09:24)
[2021-10-31] MEDS: FOLIC ACID 1 MG TABLET (FP) PO SCH (09:30)
[2021-10-31 09:42] LABS: BLOOD UREA NITROGEN 14.1 mg/dL (7-18); CALCIUM 8.7 mg/dL (8.5-10.1)
[2021-10-31 09:43] LABS: ALBUMIN 3.5 g/dl (3.4-5.0)
[2021-10-31 09:44] LABS: MAGNESIUM 2.1 mg/dL (1.8-2.4); PHOSPHOROUS 3.2 mg/dL (2.5-4.9)
[2021-10-31 09:45] LABS: CREATININE 0.8 mg/dL (0.55-1.3)
[2021-10-31 09:47] LABS: BILIRUBIN,TOTAL 3.1 mg/dL (0.2-1); TOT PROT 7.2 g/dl (6.4-8.2)
[2021-10-31] MEDS ORDERED: MIDAZOLAM HCL 2 MG/2 ML SINGLE DOSE VIAL ONE (10:28)
[2021-10-31] MEDS ORDERED: LIDOCAINE HCL 1%, 10 MG/ML (20ML VIAL) NR ONE ×3 (11:17)
[2021-10-31] MEDS ORDERED: PROPOFOL 20 ML ONE (11:25)
[2021-10-31] MEDS ORDERED: oxyCODONE HCL 5 MG TABLET PO PRN (12:13)
[2021-10-31] MEDS ORDERED: SENNOSIDES 8.6MG TABLET (FP) PO PRN (12:13)
[2021-11-01] MEDS: CEFAZOLIN SODIUM 2 GM in DEXTROSE 5%-WATER 100 ML IVPB SCH ×3 (02:34→17:38)
[2021-11-01 08:23] LABS: BASO % 0.7 % (0-2.0); EOS % 3.9 % (0-4.5); HEMATOCRIT 18.5 % (32.4-45.2); LYMPH % 24.8 % (8-40); MCH 30.5 pg (25.7-33.7); MCHC 34.5 g/dl (32.0-36.0); MEAN CELL VOLUME 88.5 fl (80-96); MEAN PLT VOLUME 9.7 fl (7.5-11.1); MONO % 13.3 % (3.8-10.2); NEUT % 57.3 % (42.8-82.8); PLATELET COUNT 241 10^3/uL (134-434); RBC 2.09 M/mm3 (3.60-5.2); RDW 24.1 % (11.6-15.6); WHITE BLOOD COUNT 12.2 K/mm3 (4.0-10.0)
[2021-11-01 08:41] LABS: HEMOGLOBIN 6.4 GM/dL (10.7-15.3)
[2021-11-01 08:56] LABS: ALBUMIN 3.2 g/dl (3.4-5.0); BLOOD UREA NITROGEN 12.8 mg/dL (7-18); CALCIUM 8.4 mg/dL (8.5-10.1); MAGNESIUM 2.2 mg/dL (1.8-2.4)
[2021-11-01 08:59] LABS: CREATININE 0.7 mg/dL (0.55-1.3); PHOSPHOROUS 3.4 mg/dL (2.5-4.9)
[2021-11-01 09:01] LABS: BILIRUBIN,TOTAL 3.1 mg/dL (0.2-1); TOT PROT 6.7 g/dl (6.4-8.2)
[2021-11-01] MEDS: FOLIC ACID 1 MG TABLET (FP) PO SCH (09:33)
[2021-11-01 10:40] LABS: ANISOCYTOSIS 1+; MACROCYTOSIS 1+; PLATELET ESTIMATE NORMAL
[2021-11-01 10:41] LABS: SICKELED CELLS FEW
[2021-11-01] MEDS ORDERED: oxyCODONE HCL 5 MG TABLET PO ONE (17:54)
[2021-11-02] MEDS: CEFAZOLIN SODIUM 2 GM in DEXTROSE 5%-WATER 100 ML IVPB SCH ×3 (01:14→18:20)
[2021-11-02 08:09] LABS: BASO % 0.8 % (0-2.0); EOS % 5.2 % (0-4.5); HEMATOCRIT 22.3 % (32.4-45.2); HEMOGLOBIN 7.7 GM/dL (10.7-15.3); LYMPH % 25.1 % (8-40); MCH 29.3 pg (25.7-33.7); MCHC 34.4 g/dl (32.0-36.0); MEAN CELL VOLUME 85.3 fl (80-96); MEAN PLT VOLUME 9.6 fl (7.5-11.1); MONO % 12.5 % (3.8-10.2); NEUT % 56.4 % (42.8-82.8); PLATELET COUNT 262 10^3/uL (134-434); RBC 2.61 M/mm3 (3.60-5.2); RDW 21.9 % (11.6-15.6); WHITE BLOOD COUNT 14.6 K/mm3 (4.0-10.0)
[2021-11-02 08:41] LABS: ALBUMIN 3.3 g/dl (3.4-5.0); BILIRUBIN,TOTAL 2.9 mg/dL (0.2-1); BLOOD UREA NITROGEN 18.6 mg/dL (7-18); CALCIUM 8.5 mg/dL (8.5-10.1); CREATININE 0.8 mg/dL (0.55-1.3); MAGNESIUM 2.1 mg/dL (1.8-2.4); PHOSPHOROUS 3.2 mg/dL (2.5-4.9); TOT PROT 6.8 g/dl (6.4-8.2)
[2021-11-02] MEDS: FOLIC ACID 1 MG TABLET (FP) PO SCH (10:00)
[2021-11-03] MEDS: CEFAZOLIN SODIUM 2 GM in DEXTROSE 5%-WATER 100 ML IVPB SCH ×3 (02:22→17:39)
[2021-11-03] MEDS: FOLIC ACID 1 MG TABLET (FP) PO SCH (11:06)
[2021-11-03] MEDS ORDERED: ACETAMINOPHEN 325 MG TABLET (FP) PO PRN (11:54)
[2021-11-04] MEDS: CEFAZOLIN SODIUM 2 GM in DEXTROSE 5%-WATER 100 ML IVPB SCH ×3 (01:21→18:08)
[2021-11-04 09:17] LABS: BASO % 0.8 % (0-2.0); EOS % 5.1 % (0-4.5); HEMATOCRIT 23.6 % (32.4-45.2); LYMPH % 25.7 % (8-40); MCH 29.4 pg (25.7-33.7); MCHC 33.9 g/dl (32.0-36.0); MEAN CELL VOLUME 86.5 fl (80-96); MEAN PLT VOLUME 9.7 fl (7.5-11.1); MONO % 11.8 % (3.8-10.2); NEUT % 56.6 % (42.8-82.8); PLATELET COUNT 330 10^3/uL (134-434); RBC 2.73 M/mm3 (3.60-5.2); RDW 23.2 % (11.6-15.6); WHITE BLOOD COUNT 11.5 K/mm3 (4.0-10.0)
[2021-11-04 09:33] LABS: CALCIUM 9.2 mg/dL (8.5-10.1)
[2021-11-04 09:34] LABS: ALBUMIN 3.5 g/dl (3.4-5.0); MAGNESIUM 1.7 mg/dL (1.8-2.4)
[2021-11-04 09:35] LABS: BLOOD UREA NITROGEN 14.8 mg/dL (7-18)
[2021-11-04 09:37] LABS: CREATININE 0.7 mg/dL (0.55-1.3); PHOSPHOROUS 4.2 mg/dL (2.5-4.9)
[2021-11-04 09:38] LABS: TOT PROT 7.2 g/dl (6.4-8.2)
[2021-11-04 09:39] LABS: BILIRUBIN,TOTAL 2.9 mg/dL (0.2-1)
[2021-11-04] MEDS: FOLIC ACID 1 MG TABLET (FP) PO SCH (10:41)
[2021-11-04 10:52] LABS: ANISOCYTOSIS 1+; MACROCYTOSIS 0; PLATELET ESTIMATE NORMAL; SICKELED CELLS 1+
[2021-11-05] MEDS: CEFAZOLIN SODIUM 2 GM in DEXTROSE 5%-WATER 100 ML IVPB SCH ×3 (02:00→18:43)
[2021-11-05 08:12] LABS: EOS % 5.3 % (0-4.5); HEMATOCRIT 22.2 % (32.4-45.2); HEMOGLOBIN 7.6 GM/dL (10.7-15.3); LYMPH % 25.1 % (8-40); MCH 29.3 pg (25.7-33.7); MCHC 34.1 g/dl (32.0-36.0); MEAN CELL VOLUME 85.9 fl (80-96); MEAN PLT VOLUME 9.9 fl (7.5-11.1); MONO % 12.4 % (3.8-10.2); NEUT % 55.2 % (42.8-82.8); PLATELET COUNT 297 10^3/uL (134-434); RBC 2.58 M/mm3 (3.60-5.2); RDW 21.7 % (11.6-15.6); WHITE BLOOD COUNT 12.4 K/mm3 (4.0-10.0)
[2021-11-05 08:24] LABS: ALBUMIN 3.4 g/dl (3.4-5.0); CALCIUM 8.9 mg/dL (8.5-10.1)
[2021-11-05 08:27] LABS: PHOSPHOROUS 3.9 mg/dL (2.5-4.9)
[2021-11-05 08:28] LABS: CREATININE 0.7 mg/dL (0.55-1.3)
[2021-11-05 08:29] LABS: BILIRUBIN,TOTAL 2.8 mg/dL (0.2-1); TOT PROT 7.1 g/dl (6.4-8.2)
[2021-11-05] MEDS: FOLIC ACID 1 MG TABLET (FP) PO SCH (09:30)
[2021-11-05] MEDS ORDERED: LIDOCAINE VISCOUS 2% ORAL/TOP 15 ML UNIT-DOSE CUP ONE (14:18)
[2021-11-05] MEDS ORDERED: LIDOCAINE VISCOUS 2% ORAL/TOP 15 ML UNIT-DOSE CUP MM ONE (15:05)
[2021-11-06] MEDS: CEFAZOLIN SODIUM 2 GM in DEXTROSE 5%-WATER 100 ML IVPB SCH ×3 (01:16→18:25)
[2021-11-06] MEDS: FOLIC ACID 1 MG TABLET (FP) PO SCH (10:41)
[2021-11-06 22:53] VITALS: BP 113/60
[2021-11-07] MEDS: CEFAZOLIN SODIUM 2 GM in DEXTROSE 5%-WATER 100 ML IVPB SCH ×2 (02:48→09:13)
[2021-11-07 07:07] VITALS: PULSE 77; RESP 17; TEMP 98.9
[2021-11-07] MEDS: FOLIC ACID 1 MG TABLET (FP) PO SCH (09:14)
== END 2021-11-07 11:35 | disposition home or self-care (01) | DRG 314 ==
LOC: JER 18:45 → JERBED 19:31 → J7W 10-29 01:44
PROVIDERS: ADMIT Hospitalist; ATTEND Internal Medicine
PROC: 0WP803Z Removal of Infusion Device from Chest Wall, Open Approach (ICD-10-PCS; 2021-10-31)
PROC: 30233N1 Transfusion of Nonautologous Red Blood Cells into Peripheral Vein, Percutaneous Approach (ICD-10-PCS; 2021-11-01)
PROC: B246ZZ4 Ultrasonography of Right and Left Heart, Transesophageal (ICD-10-PCS; principal; 2021-11-05 13:45)
DX: T80.212A Local infection due to central venous catheter, initial encounter (principal); D57.00 Hb-SS disease with crisis, unspecified; R78.81 Bacteremia; R51.9 Headache, unspecified; K74.60 Unspecified cirrhosis of liver; B95.7 Other staphylococcus as the cause of diseases classified elsewhere; E83.111 Hemochromatosis due to repeated red blood cell transfusions; Y83.8 Other surgical procedures as the cause of abnormal reaction of the patient, or of later complication, without mention of misadventure at the time of the procedure
CPT/HCPCS: 36415; 80053; 82248; 83735; 84100; 84703; 85025; 85027; 85610; 85730; 86850; 86900; 86901; 86922; 87040; 93306-TC; 93312; 93325; 94760; 99285-25; C9803-CS; P9058; U0003; U0005

== ENCOUNTER 2022-09-27 11:01 | Emergency (ER) | payer BC, OTHER ==
[2022-09-27 11:13] VITALS: BP 98/50; PULSE 94; RESP 17; TEMP 98.9; BMI 34.7
[2022-09-27] MEDS ORDERED: ACETAMINOPHEN 500 MG TABLET (FP) PO ONE (11:34)
[2022-09-27] MEDS ORDERED: ACETAMINOPHEN 500 MG TABLET (FP) ONE (11:42)
== END 2022-09-27 13:35 | disposition home or self-care (01) ==
LOC: JERFT 11:01
DX: M25.512 Pain in left shoulder (principal); M54.50 Low back pain, unspecified; W19.XXXA Unspecified fall, initial encounter
CPT/HCPCS: 72100-TC-FY; 73030-TC-LT-FY; 99284-25

== ENCOUNTER 2023-09-02 14:36 | Observation (INO) | payer BC, OTHER ==
[2023-09-02 14:49] VITALS: BMI 27.3
[2023-09-02] MEDS ORDERED: ACETAMINOPHEN INJECTION 100 ML IVPB ONE (15:43)
[2023-09-02] MEDS ORDERED: diphenhydrAMINE HCL 25 MG CAPSULE (FP) PO ONE (15:43)
[2023-09-02 15:45] LABS: EOS % 1.1 % (0-4.5); HEMATOCRIT 31.9 % (32.4-45.2); HEMOGLOBIN 10.5 GM/dL (10.7-15.3); LYMPH % 27.7 % (8-40); MCH 28.8 pg (25.7-33.7); MCHC 32.8 g/dl (32.0-36.0); MEAN CELL VOLUME 87.9 fl (80-96); MEAN PLT VOLUME 9.4 fl (7.5-11.1); MONO % 15.4 % (3.8-10.2); NEUT % 54.8 % (42.8-82.8); PLATELET COUNT 227 10^3/uL (134-434); RBC 3.62 M/mm3 (3.60-5.2); RDW 20.8 % (11.6-15.6); VENOUS BASE EXCESS -2.7 mmol/L (-2-2); VENOUS O2 SATURATION 46.1 % (70-80); VENOUS PCO2 41.1 mmHg (38-52); VENOUS PH 7.358 (7.310-7.410); WHITE BLOOD COUNT 10.6 K/mm3 (4.0-10.0)
[2023-09-02] MEDS: diphenhydrAMINE HCL 25 MG CAPSULE (FP) PO ONE (15:50)
[2023-09-02] MEDS: ACETAMINOPHEN 1000 MG/100 ML BAG IVPB ONE (15:50)
[2023-09-02 15:54] LABS: INR 1.13 (0.83-1.09); PROTHROMBIN TIME (PATIENT) 12.7 SEC (9.7-13.0)
[2023-09-02 15:56] LABS: ACTIVATED PTT 30.7 SECONDS (25.2-36.5)
[2023-09-02 16:13] LABS: ANISOCYTOSIS 2+; MACROCYTOSIS 1+; POTASSIUM 3.9 mmol/L (3.5-5.1)
[2023-09-02 16:15] LABS: CALCIUM 8.5 mg/dL (8.5-10.1)
[2023-09-02 16:16] LABS: ALBUMIN 3.9 g/dl (3.4-5.0); BLOOD UREA NITROGEN 11.2 mg/dL (7-18); MAGNESIUM 2.1 mg/dL (1.8-2.4)
[2023-09-02 16:19] LABS: CREATININE 0.9 mg/dL (0.55-1.3)
[2023-09-02 16:20] LABS: BILIRUBIN,TOTAL 3.3 mg/dL (0.2-1)
[2023-09-02 16:21] LABS: TOT PROT 7.2 g/dl (6.4-8.2)
[2023-09-02 16:25] LABS: ERYTHROCYTE SEDIMENTATION RATE 9 mm/hr (0-20)
[2023-09-02] MEDS: VANCOMYCIN PREMIX 1.5 GM 1,500 MG/300 ML BAG IVPB ONE (16:45)
[2023-09-02] MEDS: VANCOMYCIN HCL 1,500 MG in DEXTROSE 5%-WATER - 500 ML IVPB ONE (18:23)
[2023-09-02] MEDS ORDERED: oxyCODONE HCL 5 MG TABLET PO PRN (19:38)
[2023-09-03] MEDS: VANCOMYCIN/WATER FOR INJ (PEG) 1,000 MG/200 ML BAG IVPB SCH ×2 (05:34→18:45)
[2023-09-03 08:14] LABS: BASO % 1.2 % (0-2.0); HEMATOCRIT 28.6 % (32.4-45.2); HEMOGLOBIN 9.6 GM/dL (10.7-15.3); LYMPH % 23.6 % (8-40); MCH 29.7 pg (25.7-33.7); MCHC 33.5 g/dl (32.0-36.0); MEAN CELL VOLUME 88.6 fl (80-96); MEAN PLT VOLUME 9.6 fl (7.5-11.1); MONO % 17.2 % (3.8-10.2); PLATELET COUNT 212 10^3/uL (134-434); RBC 3.23 M/mm3 (3.60-5.2); RDW 20.3 % (11.6-15.6); WHITE BLOOD COUNT 9.5 K/mm3 (4.0-10.0)
[2023-09-03 08:27] LABS: POTASSIUM 4.5 mmol/L (3.5-5.1)
[2023-09-03 08:32] LABS: ALBUMIN 3.3 g/dl (3.4-5.0); CALCIUM 8.1 mg/dL (8.5-10.1); MAGNESIUM 2.1 mg/dL (1.8-2.4)
[2023-09-03 08:33] LABS: BLOOD UREA NITROGEN 13.6 mg/dL (7-18)
[2023-09-03 08:35] LABS: PHOSPHOROUS 3.3 mg/dL (2.5-4.9)
[2023-09-03 08:36] LABS: CREATININE 0.9 mg/dL (0.55-1.3)
[2023-09-03 08:37] LABS: BILIRUBIN,TOTAL 2.8 mg/dL (0.2-1); TOT PROT 6.3 g/dl (6.4-8.2)
[2023-09-03] MEDS ORDERED: DEFERASIROX 360 MG PO SCH (10:00)
[2023-09-03] MEDS: ENOXAPARIN NA (PORCINE) 40 MG/0.4 ML DISP.SYRIN SQ SCH (11:28)
[2023-09-03] MEDS: MULTIVITAMINS THER W-MINERALS COMBO TABLET (FP) PO SCH (11:28)
[2023-09-03] MEDS: FOLIC ACID 1 MG TABLET (FP) PO SCH (11:28)
[2023-09-03] MEDS: LISINOPRIL 5 MG TABLET PO SCH (11:28)
[2023-09-04 07:46] LABS: BASO % 1.5 % (0-2.0); EOS % 1.5 % (0-4.5); HEMATOCRIT 29.1 % (32.4-45.2); HEMOGLOBIN 9.8 GM/dL (10.7-15.3); MCH 29.5 pg (25.7-33.7); MCHC 33.7 g/dl (32.0-36.0); MEAN CELL VOLUME 87.4 fl (80-96); MEAN PLT VOLUME 9.7 fl (7.5-11.1); MONO % 15.8 % (3.8-10.2); NEUT % 62.2 % (42.8-82.8); PLATELET COUNT 238 10^3/uL (134-434); RBC 3.33 M/mm3 (3.60-5.2); RDW 20.7 % (11.6-15.6); WHITE BLOOD COUNT 10.2 K/mm3 (4.0-10.0)
[2023-09-04 07:59] LABS: POTASSIUM 4.5 mmol/L (3.5-5.1)
[2023-09-04 08:05] LABS: ALBUMIN 3.4 g/dl (3.4-5.0); CALCIUM 8.2 mg/dL (8.5-10.1)
[2023-09-04 08:07] LABS: BLOOD UREA NITROGEN 17.2 mg/dL (7-18); CREATININE 0.9 mg/dL (0.55-1.3)
[2023-09-04 08:08] LABS: TOT PROT 6.5 g/dl (6.4-8.2)
[2023-09-04 08:09] LABS: BILIRUBIN,TOTAL 2.8 mg/dL (0.2-1)
[2023-09-04 13:52] VITALS: RESP 20
[2023-09-04 14:59] VITALS: BP 110/71; PULSE 86; TEMP 98.2
== END 2023-09-04 21:50 | disposition home or self-care (01) ==
LOC: JER 14:36 → JERBED 16:43 → J7W 19:49
PROVIDERS: ADMIT Internal Medicine
PROC: 3E033NZ Introduction of Analgesics, Hypnotics, Sedatives into Peripheral Vein, Percutaneous Approach (ICD-10-PCS; principal; 2023-09-02)
PROC: 3E03329 Introduction of Other Anti-infective into Peripheral Vein, Percutaneous Approach (ICD-10-PCS; 2023-09-02)
DX: Z45.89 Encounter for adjustment and management of other implanted devices (principal); D57.1 Sickle-cell disease without crisis; K74.60 Unspecified cirrhosis of liver; Z86.2 Personal history of diseases of the blood and blood-forming organs and certain disorders involving the immune mechanism; Z90.49 Acquired absence of other specified parts of digestive tract; Z87.898 Personal history of other specified conditions
CPT/HCPCS: 36415; 71045-TC-FY; 80053; 82248; 82550; 82803; 83010; 83605; 83615; 83735; 84100; 84484; 85025; 85045; 85610; 85651; 85730; 86140; 86850; 86900; 86901; 87040; 93005; 93010; 99285-25; G0378; J0131